=== PATIENT | female | born 1960 | race Caucasian/White ===

== ENCOUNTER 2016-10-13 14:45 | Outpatient (RCR) | payer BC ==
[2014-02-19 08:54] VITALS: BP 151/76
[~2016-10-13 14:45] MED LIST: MAXZIDE 25 MG-31 TAB PO; NORCO 325 MG-7.1 TAB PO; NORVASC2.5 MG PO; SYNTHROID0.1 MG PO
== END 2016-11-12 11:10 | disposition home or self-care (01) ==
LOC: PT 14:45
DX: M25.562 Pain in left knee (principal)

== ENCOUNTER → 2016-12-24 | Outpatient (CLI) | payer BC ==
[2014-02-19 08:54] VITALS: BP 151/76
== END ==
LOC: MAMMO 15:50
DX: Z12.31 Encounter for screening mammogram for malignant neoplasm of breast (principal)
CPT/HCPCS: G0202

== ENCOUNTER → 2016-12-30 | Outpatient (CLI) | payer BC ==
[2014-02-19 08:54] VITALS: BP 151/76
== END ==
LOC: LAB 08:30
DX: Z00.00 Encounter for general adult medical examination without abnormal findings (principal); Z13.220 Encounter for screening for lipoid disorders; R12 Heartburn

== ENCOUNTER → 2017-01-27 | Day surgery (SDC) | payer BC ==
[2014-02-19 08:54] VITALS: BP 151/76
== END ==
LOC: MSO 10:53
DX: K21.9 Gastro-esophageal reflux disease without esophagitis (principal); R13.10 Dysphagia, unspecified; K22.8 Other specified diseases of esophagus; K44.9 Diaphragmatic hernia without obstruction or gangrene; K21.0 Gastro-esophageal reflux disease with esophagitis; K22.2 Esophageal obstruction
CPT/HCPCS: 00740; A4649; J7120

== ENCOUNTER → 2017-04-07 | Outpatient (CLI) | payer BC ==
[2014-02-19 08:54] VITALS: BP 151/76
== END ==
LOC: RAD 11:02
DX: S62.662A Nondisplaced fracture of distal phalanx of right middle finger, initial encounter for closed fracture (principal); X58.XXXA Exposure to other specified factors, initial encounter

== ENCOUNTER → 2017-04-08 | Outpatient (CLI) | payer BC ==
[2014-02-19 08:54] VITALS: BP 151/76
== END ==
LOC: PT 15:26
DX: M25.562 Pain in left knee (principal); M25.462 Effusion, left knee

== ENCOUNTER 2017-05-29 15:00 | Outpatient (RCR) | payer BC ==
[2014-02-19 08:54] VITALS: BP 151/76
[2017-06-22] MEDS ORDERED: ESTRACE 1MG1 MG/TAB PO (08:39)
[2017-06-22] MEDS ORDERED: CALCIUM 600MG+D1 TAB PO (08:40)
[2017-06-22] MEDS ORDERED: ASPIR LOW81 MG PO (08:40)
[2017-06-22] MEDS ORDERED: OMEPRAZOLE40 MG PO (08:41)
[2017-06-22] MEDS ORDERED: MOBIC15 M1 PO (08:41)
== END 2017-05-29 15:30 | disposition home or self-care (01) ==
LOC: PT 15:00
DX: Z47.89 Encounter for other orthopedic aftercare (principal)

== ENCOUNTER → 2017-06-22 | Outpatient (CLI) | payer BC ==
[~2017-06-22] VITALS: Ht 157.5 cm; Wt 74.1 kg
[~2017-06-22] MED LIST changes: +ASPIR LOW81 MG PO; +CALCIUM 600MG+D1 TAB PO; +ESTRACE 1MG1 MG/TAB PO; +MOBIC15 M1 PO; +OMEPRAZOLE40 MG PO
[2017-06-22 08:29] LABS: EOS # 0.1 (0.04-0.40); EOS % 1.9 % (1.0-5.0); HEMATOCRIT 37.5 % (37.0-47.0); HEMOGLOBIN 12.7 g/dL (12.5-16.0); LYMPH# 2.2 (1.50-4.00); MEAN CELL VOLUME 86 fl (78-100); MEAN CORPUSCULAR HEMOGLOBIN 29 pg (27-31); MEAN CORPUSCULAR HGB CONC 34 g/dL (33-37); MEAN PLATELET VOLUME 9.3 fl (7.4-10.4); MONO # 0.5 (0.20-0.80); PLATELET COUNT 299 K/mm3 (130-400); RED BLOOD COUNT 4.34 M/mm3 (4.10-5.30); RED CELL DISTRIBUTION WIDTH 13.4 % (11.5-14.5); WHITE BLOOD COUNT 5.8 K/mm3 (4.8-10.8)
[2017-06-22 08:36] LABS: ALBUMIN 3.7 g/dL (3.5-5.0); BUN/CREATININE RATIO 21.7 (6.0-26.0); CALCIUM 9.1 mg/dL (8.4-10.2); POTASSIUM 3.9 mmol/L (3.6-5.0); TOTAL BILIRUBIN 0.7 mg/dL (0.2-1.3); TOTAL PROTEIN 7.3 g/dL (6.3-8.2)
[2017-06-22 08:44] LABS: PH-URINE 8.5 (5.0 - 8.0); URINE APPEARANCE CLEAR; URINE BILIRUBIN NEGATIVE (NEGATIVE); URINE BLOOD NEGATIVE (NEGATIVE); URINE COLOR YELLOW; URINE GLUCOSE NEGATIVE (NEGATIVE); URINE KETONE NEGATIVE (NEGATIVE); URINE LEUKOCYTE ESTERASE NEGATIVE (NEGATIVE); URINE NITRATE NEGATIVE (NEGATIVE); URINE PROTEIN(semi-quant) NEGATIVE (NEGATIVE); URINE UROBILINOGEN NORMAL (NORMAL); URINE WBC 0-1 /hpf (0-3)
[2017-06-22 08:50] VITALS: BP 164/86
== END ==
LOC: AMSURD 08:10
PROVIDERS: Nurse Practitioner Family
DX: Z01.818 Encounter for other preprocedural examination (principal); M25.562 Pain in left knee

== ENCOUNTER → 2017-08-06 | Outpatient (CLI) | payer BC ==
[2017-06-22 08:50] VITALS: BP 164/86
[2017-08-06 18:28] LABS: HEMOGLOBIN 11.2 g/dL (12.5-16.0); MEAN CELL VOLUME 89 fl (78-100); MEAN CORPUSCULAR HEMOGLOBIN 29 pg (27-31); MEAN CORPUSCULAR HGB CONC 33 g/dL (33-37); MEAN PLATELET VOLUME 8.8 fl (7.4-10.4); PLATELET COUNT 457 K/mm3 (130-400); RED BLOOD COUNT 3.84 M/mm3 (4.10-5.30); RED CELL DISTRIBUTION WIDTH 13.9 % (11.5-14.5)
[2017-08-06 18:40] LABS: WHITE BLOOD COUNT 22.7 K/mm3 (4.8-10.8)
[2017-08-06 18:42] LABS: LYMPHOCYTE 3 % (20-51); MONOCYTE 3 % (3-10); NEUTROPHILS 94 % (42-75)
[2017-08-06 19:24] LABS: ERYTHROCYTE SEDIMENTATION RATE 25 mm/hr (0-30)
[2017-08-06 20:24] LABS: PH-URINE 5.5 (5.0 - 8.0); URINE APPEARANCE CLEAR; URINE BILIRUBIN NEGATIVE (NEGATIVE); URINE COLOR YELLOW; URINE GLUCOSE NEGATIVE (NEGATIVE); URINE KETONE NEGATIVE (NEGATIVE); URINE PROTEIN(semi-quant) TRACE mg/dL (NEGATIVE)
[2017-08-06 20:25] LABS: URINE BLOOD TRACE (NEGATIVE); URINE LEUKOCYTE ESTERASE NEGATIVE (NEGATIVE); URINE NITRATE NEGATIVE (NEGATIVE); URINE UROBILINOGEN NORMAL (NORMAL); URINE WBC 0-1 /hpf (0-3)
== END ==
LOC: LAB 18:04
PROVIDERS: Nurse Practitioner Family
DX: R50.9 Fever, unspecified (principal); Z96.652 Presence of left artificial knee joint

== ENCOUNTER 2017-08-11 08:00 | Outpatient (RCR) | payer BC ==
[2017-06-22 08:50] VITALS: BP 164/86
== END 2017-08-11 08:30 | disposition home or self-care (01) ==
LOC: PT 08:00
DX: Z47.89 Encounter for other orthopedic aftercare (principal)

== ENCOUNTER → 2017-08-12 | Outpatient (CLI) | payer BC ==
[2017-06-22 08:50] VITALS: BP 164/86
[2017-08-12 16:39] LABS: EOS # 0.1 (0.04-0.40); EOS % 1.5 % (1.0-5.0); HEMATOCRIT 34.2 % (37.0-47.0); HEMOGLOBIN 10.9 g/dL (12.5-16.0); LYMPH# 1.9 (1.50-4.00); MEAN CELL VOLUME 90 fl (78-100); MEAN CORPUSCULAR HEMOGLOBIN 29 pg (27-31); MEAN CORPUSCULAR HGB CONC 32 g/dL (33-37); MEAN PLATELET VOLUME 8.5 fl (7.4-10.4); MONO # 0.9 (0.20-0.80); NEU # 5.5 (1.40-6.50); RED BLOOD COUNT 3.82 M/mm3 (4.10-5.30); RED CELL DISTRIBUTION WIDTH 13.9 % (11.5-14.5); WHITE BLOOD COUNT 8.5 K/mm3 (4.8-10.8)
[2017-08-12 16:44] LABS: PLATELET COUNT 561 K/mm3 (130-400)
== END ==
LOC: LAB 16:26
PROVIDERS: Nurse Practitioner Family
DX: D72.829 Elevated white blood cell count, unspecified (principal)

== ENCOUNTER → 2017-09-02 | Outpatient (CLI) | payer BC ==
[2017-06-22 08:50] VITALS: BP 164/86
[2017-09-02 15:38] LABS: EOS # 0.1 (0.04-0.40); EOS % 0.9 % (1.0-5.0); HEMATOCRIT 35.2 % (37.0-47.0); HEMOGLOBIN 10.9 g/dL (12.5-16.0); LYMPH# 1.8 (1.50-4.00); MEAN CELL VOLUME 88 fl (78-100); MEAN CORPUSCULAR HEMOGLOBIN 27 pg (27-31); MEAN CORPUSCULAR HGB CONC 31 g/dL (33-37); MEAN PLATELET VOLUME 8.6 fl (7.4-10.4); MONO # 0.6 (0.20-0.80); NEU # 4.1 (1.40-6.50); RED BLOOD COUNT 3.99 M/mm3 (4.10-5.30); RED CELL DISTRIBUTION WIDTH 13.8 % (11.5-14.5); WHITE BLOOD COUNT 6.6 K/mm3 (4.8-10.8)
[2017-09-02 15:45] LABS: PLATELET COUNT 660 K/mm3 (130-400)
[2017-09-02 21:08] LABS: ERYTHROCYTE SEDIMENTATION RATE 72 mm/hr (0-30)
== END ==
LOC: LAB 15:00
PROVIDERS: Orthopaedic Surgery Sports Medicine
DX: Z47.1 Aftercare following joint replacement surgery (principal); M25.862 Other specified joint disorders, left knee

== ENCOUNTER → 2017-09-07 | Outpatient (CLI) | payer BC ==
[2017-06-22 08:50] VITALS: BP 164/86
[2017-09-07 10:27] LABS: HEMATOCRIT 37.8 % (37.0-47.0); HEMOGLOBIN 11.9 g/dL (12.5-16.0); MEAN CELL VOLUME 88 fl (78-100); MEAN CORPUSCULAR HEMOGLOBIN 28 pg (27-31); MEAN CORPUSCULAR HGB CONC 32 g/dL (33-37); MEAN PLATELET VOLUME 8.3 fl (7.4-10.4); RED BLOOD COUNT 4.32 M/mm3 (4.10-5.30); RED CELL DISTRIBUTION WIDTH 14.5 % (11.5-14.5); WHITE BLOOD COUNT 5.1 K/mm3 (4.8-10.8)
[2017-09-07 11:19] LABS: PLATELET COUNT 529 K/mm3 (130-400)
[2017-09-07 11:21] LABS: BAND 1 % (0-10); LYMPHOCYTE 20 % (20-51); MONOCYTE 19 % (3-10); NEUTROPHILS 60 % (42-75)
[2017-09-07 11:35] LABS: ERYTHROCYTE SEDIMENTATION RATE 50 mm/hr (0-30)
== END ==
LOC: LAB 10:17
PROVIDERS: Nurse Practitioner Family
DX: R05 Cough (principal); R50.9 Fever, unspecified; L02.416 Cutaneous abscess of left lower limb; Z91.041 Radiographic dye allergy status

== ENCOUNTER → 2017-09-14 | Outpatient (CLI) | payer BC ==
[2017-06-22 08:50] VITALS: BP 164/86
[2017-09-14 09:50] LABS: EOS # 0.1 (0.04-0.40); EOS % 0.8 % (1.0-5.0); HEMATOCRIT 35.4 % (37.0-47.0); HEMOGLOBIN 11.2 g/dL (12.5-16.0); LYMPH# 1.7 (1.50-4.00); MEAN CELL VOLUME 87 fl (78-100); MEAN CORPUSCULAR HEMOGLOBIN 28 pg (27-31); MEAN CORPUSCULAR HGB CONC 32 g/dL (33-37); MEAN PLATELET VOLUME 9.7 fl (7.4-10.4); MONO # 0.5 (0.20-0.80); NEU # 4.3 (1.40-6.50); PLATELET COUNT 379 K/mm3 (130-400); RED BLOOD COUNT 4.08 M/mm3 (4.10-5.30); RED CELL DISTRIBUTION WIDTH 14.1 % (11.5-14.5); WHITE BLOOD COUNT 6.6 K/mm3 (4.8-10.8)
== END ==
LOC: LAB 09:25
PROVIDERS: Nurse Practitioner Family
DX: R70.0 Elevated erythrocyte sedimentation rate (principal); L02.416 Cutaneous abscess of left lower limb

== ENCOUNTER → 2017-09-22 | Outpatient (CLI) | payer BC ==
[2017-06-22 08:50] VITALS: BP 164/86
== END ==
LOC: LAB 14:42
DX: T84.54XA Infection and inflammatory reaction due to internal left knee prosthesis, initial encounter (principal)

== ENCOUNTER → 2017-09-28 | Outpatient (CLI) | payer BC ==
[2017-06-22 08:50] VITALS: BP 164/86
== END ==
LOC: LAB 14:48
DX: L02.416 Cutaneous abscess of left lower limb (principal); L92.9 Granulomatous disorder of the skin and subcutaneous tissue, unspecified; Z91.041 Radiographic dye allergy status

== ENCOUNTER 2017-10-08 15:30 | Outpatient (RCR) | payer BC ==
[2017-06-22 08:50] VITALS: BP 164/86
== END 2017-11-09 | disposition home or self-care (01) ==
LOC: PT
DX: Z47.89 Encounter for other orthopedic aftercare (principal)

== ENCOUNTER 2017-11-16 15:30 | Outpatient (RCR) | payer BC ==
[2017-06-22 08:50] VITALS: BP 164/86
== END 2017-11-16 16:30 | disposition home or self-care (01) ==
LOC: PT 15:30
DX: Z47.89 Encounter for other orthopedic aftercare (principal)

== ENCOUNTER → 2017-11-27 | Outpatient (CLI) | payer BC ==
[2017-06-22 08:50] VITALS: BP 164/86
[2017-11-27 13:17] LABS: EOS % 0.5 % (1.0-5.0); HEMATOCRIT 33.2 % (37.0-47.0); HEMOGLOBIN 10.7 g/dL (12.5-16.0); LYMPH# 2.5 (1.50-4.00); MEAN CELL VOLUME 85 fl (78-100); MEAN CORPUSCULAR HEMOGLOBIN 27 pg (27-31); MEAN CORPUSCULAR HGB CONC 32 g/dL (33-37); MONO # 0.7 (0.20-0.80); NEU # 5.5 (1.40-6.50); PLATELET COUNT 438 K/mm3 (130-400); RED BLOOD COUNT 3.93 M/mm3 (4.10-5.30); RED CELL DISTRIBUTION WIDTH 14.8 % (11.5-14.5); WHITE BLOOD COUNT 8.7 K/mm3 (4.8-10.8)
[2017-11-27 14:30] LABS: ERYTHROCYTE SEDIMENTATION RATE 37 mm/hr (0-30)
== END ==
LOC: LAB 12:56
PROVIDERS: Orthopaedic Surgery Sports Medicine
DX: Z47.89 Encounter for other orthopedic aftercare (principal)

== ENCOUNTER 2017-12-07 22:02 | Outpatient (RCR) | payer BC ==
[~2017-12-07] VITALS: Ht 157.5 cm; Wt 63.6 kg
[~2017-12-07 22:02] MED LIST changes: -SYNTHROID0.1 MG PO; +SYNTHROID137 MCG PO
[2017-12-07 22:16] VITALS: BP 118/66
[2017-12-07] MEDS ORDERED: ZESTORETIC 25 M1 TAB PO (22:16)
[2017-12-07 22:50] VITALS: BP 116/65
[2017-12-08 06:10] VITALS: BP 108/64
[2017-12-08 06:50] VITALS: BP 102/62
[2017-12-08 14:11] VITALS: BP 101/56
[2017-12-08 14:42] VITALS: BP 104/78
[2017-12-08 22:01] VITALS: BP 123/62
[2017-12-08 22:33] VITALS: BP 105/60
[2017-12-09 06:00] VITALS: BP 94/38
[2017-12-09 06:35] VITALS: BP 107/59
[2017-12-09 14:04] VITALS: BP 137/94
[2017-12-09 14:43] VITALS: BP 106/58
[2017-12-09 22:00] VITALS: BP 115/53
[2017-12-09 22:50] VITALS: BP 112/63
[2017-12-10 05:58] VITALS: BP 107/52
[2017-12-10 06:43] VITALS: BP 104/53
[2017-12-10 14:04] VITALS: BP 108/56
[2017-12-10 14:43] VITALS: BP 105/59
[2017-12-10 21:54] VITALS: BP 126/80
[2017-12-10 22:40] VITALS: BP 109/66
--- NOTE | 2017-12-10 22:52 | NUR ---
Unable to flush red lumen or obtain blood return, prior to infusion. Notified RN and used Purple lumen which flushed easily and had good blood return. Concepcion RN assessed red lumen after infusion completed. Changed caps. Unable to obtain blood return or flush.
--- NOTE | 2017-12-10 23:00 | NUR ---
Discussed w/ pt that cath diana may be needed to help open the red lumen. Will reevaluate in the am. Pt asked to cough and reposition right arm without any change in ability to flush red lumen. Pt agreeable to plan. Purple lumen was sluggish with NS flush and flushed with Heplock 1 ml prior to pt's leaving.
[2017-12-11 06:12] VITALS: BP 117/57
[2017-12-11 06:50] VITALS: BP 116/59
[2017-12-11 14:25] VITALS: BP 103/58
--- NOTE | 2017-12-11 15:00 | NUR ---
PICC DRESSING NOTED TO HAVE MOD AMOUNT DRIED SEROUS DRAINAGE TO DISTAL END. REMOVE DRESSING AND STAT LOCK. AREA UNDER STAT LOCK RED, IRRITATED AND MOIST WITH SEROUS FLUID. PT REPORTS THAT SKIN GETS IRRITATED EASILY FROM ADHESIVES. CLEANSE AREA WITH ALCOHOL AND CHLORAPREP BY STERILE PROCEDURE, APPLY SKIN PREP AND REPLACE DRESSING. NO OTHER S/S OF INFECTION NOTED.
[2017-12-11 15:07] VITALS: BP 105/60
[2017-12-11 22:15] VITALS: BP 116/64
[2017-12-11 22:21] VITALS: BP 114/57
[2017-12-12 05:56] VITALS: BP 106/59
[2017-12-12 06:31] VITALS: BP 108/64
[2017-12-12 14:04] VITALS: BP 101/56
[2017-12-12 14:35] VITALS: BP 102/57
[2017-12-12 21:55] VITALS: BP 111/61
[2017-12-12 22:27] VITALS: BP 106/62
[2017-12-13 05:55] VITALS: BP 98/56
[2017-12-13 06:25] VITALS: BP 106/61
[2017-12-13 14:00] VITALS: BP 110/61
[2017-12-13 22:01] VITALS: BP 102/58
[2017-12-13 22:40] VITALS: BP 98/51
[2017-12-14 06:01] VITALS: BP 103/50
[2017-12-14 06:32] VITALS: BP 87/46
[2017-12-14 14:02] VITALS: BP 108/64
[2017-12-14 14:41] VITALS: BP 107/58
[2017-12-14 22:05] VITALS: BP 117/59
[2017-12-14 22:38] VITALS: BP 115/58
[2017-12-15 06:00] VITALS: BP 100/48
[2017-12-15 06:32] VITALS: BP 106/55
[2017-12-15 14:10] VITALS: BP 117/48
[2017-12-15 14:50] VITALS: BP 99/55
[2017-12-15 22:04] VITALS: BP 122/61
[2017-12-15 22:35] VITALS: BP 106/58
[2017-12-16 05:58] VITALS: BP 93/54
[2017-12-16 06:33] VITALS: BP 111/67
[2017-12-16 14:00] VITALS: BP 107/57
[2017-12-16 14:36] VITALS: BP 107/47
[2017-12-16 21:58] VITALS: BP 107/60
[2017-12-16 22:32] VITALS: BP 114/66
[2017-12-17 05:52] VITALS: BP 106/60
[2017-12-17 06:27] VITALS: BP 119/68
[2017-12-17 14:41] VITALS: BP 111/55
[2017-12-17 21:56] VITALS: BP 113/60
[2017-12-17 22:30] VITALS: BP 107/54
[2017-12-18 06:01] VITALS: BP 107/60
[2017-12-18 06:32] VITALS: BP 105/58
[2017-12-18 14:08] VITALS: BP 110/67
--- NOTE | 2017-12-18 14:45 | NUR ---
PICC SCOTTIE insertion site without redness or edema or drainage. Skin irritation noted under entire dressing - appears to be trying to blister a little. Pt denies itching. Pt reports she is very sensitive to adhesive. Extra layer of skin prep applied prior to application of tegaderm. Pt will monitor and report changes to staff. New philip wrap applied over PICC. Pt tolerated well. Pt went to Dr. Clay today and had sutures removed. Steri stips intact to right knee - no drainage noted.
[2017-12-18 14:52] VITALS: BP 112/67
[2017-12-18 22:19] VITALS: BP 114/63
[2017-12-18 23:00] VITALS: BP 125/71
[2017-12-19 06:44] VITALS: BP 83/57
[2017-12-19 08:20] VITALS: BP 111/61
[2017-12-19 14:10] VITALS: BP 136/67
[2017-12-19 14:40] VITALS: BP 117/69
[2017-12-19 21:56] VITALS: BP 108/68
[2017-12-19 22:25] VITALS: BP 124/72
[2017-12-20 06:00] VITALS: BP 105/48
[2017-12-20 06:32] VITALS: BP 106/54
[2017-12-20 14:04] VITALS: BP 99/51
[2017-12-20 14:29] VITALS: BP 118/66
[2017-12-20 22:00] VITALS: BP 119/64
[2017-12-20 22:45] VITALS: BP 112/62
[2017-12-21 06:00] VITALS: BP 107/67
[2017-12-21 06:34] VITALS: BP 119/67
[2017-12-21 14:08] VITALS: BP 115/47
[2017-12-21 14:38] VITALS: BP 102/37
[2017-12-21 22:37] VITALS: BP 104/41
[2017-12-21 23:20] VITALS: BP 110/59
[2017-12-22 05:54] VITALS: BP 108/58
[2017-12-22 06:26] VITALS: BP 110/63
[2017-12-22 14:46] VITALS: BP 105/58
[2017-12-22 14:49] VITALS: BP 109/68
[2017-12-22 22:10] VITALS: BP 108/59
[2017-12-22 23:15] VITALS: BP 111/56
[2017-12-23 05:50] VITALS: BP 113/57
[2017-12-23 06:29] VITALS: BP 103/61
[2017-12-23 14:17] VITALS: BP 107/62
[2017-12-23 14:37] VITALS: BP 105/61
[2017-12-23 22:04] VITALS: BP 105/61
[2017-12-23 22:40] VITALS: BP 108/52
[2017-12-24 05:55] VITALS: BP 99/58
--- NOTE | 2017-12-24 06:09 | NUR ---
LABS DRAWN OFF PICC LINE BEFORE MEDICATION STARTED.
[2017-12-24 06:29] VITALS: BP 108/58
[2017-12-24 13:50] VITALS: BP 112/50
[2017-12-24 14:39] VITALS: BP 106/58
[2017-12-24 22:31] VITALS: BP 126/86
[2017-12-24 23:00] VITALS: BP 129/61
[2017-12-25 05:55] VITALS: BP 121/51
[2017-12-25 06:29] VITALS: BP 121/60
[2017-12-25 13:57] VITALS: BP 108/61
[2017-12-25 14:36] VITALS: BP 111/62
[2017-12-25 21:50] VITALS: BP 97/69
[2017-12-25 22:30] VITALS: BP 117/66
[2017-12-26 05:51] VITALS: BP 107/51
[2017-12-26 06:34] VITALS: BP 111/61
[2017-12-26 14:01] VITALS: BP 112/54
[2017-12-26 14:37] VITALS: BP 118/78
[2017-12-26 21:55] VITALS: BP 114/61
[2017-12-26 22:40] VITALS: BP 106/55
[2017-12-27 06:00] VITALS: BP 110/63
[2017-12-27 06:32] VITALS: BP 99/65
[2017-12-27 13:52] VITALS: BP 109/60
[2017-12-27 14:41] VITALS: BP 105/50
[2017-12-27 21:57] VITALS: BP 115/67
[2017-12-27 22:25] VITALS: BP 121/64
[2017-12-28 05:52] VITALS: BP 116/52
[2017-12-28 06:30] VITALS: BP 109/57
[2017-12-28 14:10] VITALS: BP 104/59
[2017-12-28 14:38] VITALS: BP 106/59
[2017-12-28 21:50] VITALS: BP 119/62
[2017-12-28 22:25] VITALS: BP 124/64
[2017-12-29 05:55] VITALS: BP 117/59
[2017-12-29 06:25] VITALS: BP 107/63
[2017-12-29 16:02] VITALS: BP 110/61; BP 121/55
[2017-12-29 22:00] VITALS: BP 127/69
[2017-12-29 22:31] VITALS: BP 124/75
[2017-12-30 05:56] VITALS: BP 109/52
[2017-12-30 06:24] VITALS: BP 122/71
[2017-12-30 14:06] VITALS: BP 110/67
[2017-12-30 22:05] VITALS: BP 111/61
[2017-12-30 23:01] VITALS: BP 106/63
[2017-12-31 06:33] VITALS: BP 122/64
[2017-12-31 06:48] VITALS: BP 106/62
[2017-12-31 13:56] VITALS: BP 112/62
[2017-12-31 14:32] VITALS: BP 131/68
[2017-12-31 21:58] VITALS: BP 132/76
[2017-12-31 22:45] VITALS: BP 120/73
[2018-01-01 05:50] VITALS: BP 110/66
[2018-01-01 06:32] VITALS: BP 105/63
[2018-01-01 13:50] VITALS: BP 109/66
[2018-01-01 14:33] VITALS: BP 112/65
[2018-01-01 21:50] VITALS: BP 123/60
[2018-01-01 22:25] VITALS: BP 106/59
[2018-01-02 05:55] VITALS: BP 106/41
[2018-01-02 06:32] VITALS: BP 104/56
[2018-01-02 13:49] VITALS: BP 119/60
[2018-01-02 21:59] VITALS: BP 106/58
[2018-01-02 22:27] VITALS: BP 132/60
[2018-01-03 05:56] VITALS: BP 106/58
[2018-01-03 06:30] VITALS: BP 113/68
[2018-01-03 14:00] VITALS: BP 123/61
[2018-01-03 14:45] VITALS: BP 123/69
[2018-01-03 21:55] VITALS: BP 124/69
[2018-01-03 22:27] VITALS: BP 106/58
[2018-01-04 05:53] VITALS: BP 108/62
[2018-01-04 06:25] VITALS: BP 108/60
[2018-01-04 14:00] VITALS: BP 115/61
[2018-01-04 14:35] VITALS: BP 95/71
[2018-01-04 22:00] VITALS: BP 113/66
[2018-01-04 22:30] VITALS: BP 113/68
[2018-01-05 05:53] VITALS: BP 113/62
[2018-01-05 06:25] VITALS: BP 110/58
[2018-01-05 13:50] VITALS: BP 121/64
[2018-01-05 14:30] VITALS: BP 101/65
[2018-01-05 21:53] VITALS: BP 115/63
[2018-01-05 22:33] VITALS: BP 107/59
[2018-01-06 05:52] VITALS: BP 109/61
[2018-01-06 06:24] VITALS: BP 101/63
[2018-01-06 15:14] VITALS: BP 116/53; BP 122/73
[2018-01-06 21:50] VITALS: BP 115/66
[2018-01-06 22:25] VITALS: BP 118/65
[2018-01-07 05:50] VITALS: BP 104/59
[2018-01-07 06:35] VITALS: BP 116/66
[2018-01-07 14:05] VITALS: BP 112/64
[2018-01-07 14:35] VITALS: BP 108/65
[2018-01-07 21:51] VITALS: BP 125/70
[2018-01-07 22:33] VITALS: BP 126/68
[2018-01-08 05:47] VITALS: BP 113/58
[2018-01-08 06:23] VITALS: BP 114/61
[2018-01-08 13:56] VITALS: BP 111/64
[2018-01-08 14:35] VITALS: BP 116/55
[2018-01-08 21:50] VITALS: BP 102/60
[2018-01-08 22:23] VITALS: BP 104/57
[2018-01-09 05:54] VITALS: BP 96/56
[2018-01-09 06:32] VITALS: BP 105/62
[2018-01-09 14:07] VITALS: BP 115/55
[2018-01-09 14:50] VITALS: BP 106/60
[2018-01-09 21:50] VITALS: BP 110/67
[2018-01-09 22:28] VITALS: BP 123/52
[2018-01-10 05:47] VITALS: BP 115/54
[2018-01-10 06:34] VITALS: BP 108/62
[2018-01-10 14:41] VITALS: BP 122/59
[2018-01-10 14:45] VITALS: BP 115/65
[2018-01-10 21:53] VITALS: BP 117/68
[2018-01-10 22:24] VITALS: BP 110/65
[2018-01-11 05:49] VITALS: BP 100/63
[2018-01-11 06:21] VITALS: BP 110/64
[2018-01-11 14:00] VITALS: BP 119/46
[2018-01-11 14:45] VITALS: BP 120/66
[2018-01-11 21:50] VITALS: BP 125/70
[2018-01-11 22:25] VITALS: BP 109/69
[2018-01-12 18:35] VITALS: BP 117/69
[2018-01-13 15:13] VITALS: BP 113/78
[2018-01-14 06:05] VITALS: BP 118/59
[2018-01-15 13:56] VITALS: BP 134/76
[2018-01-16 14:05] VITALS: BP 109/64
[2018-01-17 14:15] VITALS: BP 114/47
[2018-01-18 06:02] VITALS: BP 125/47
[2018-01-19 14:15] VITALS: BP 133/64
[2018-01-20 14:30] VITALS: BP 124/76
[2018-01-21 05:56] VITALS: BP 104/61
[2018-01-22 13:52] VITALS: BP 141/67
== END 2018-01-22 16:30 | disposition home or self-care (01) ==
LOC: AMSURD 22:02
DX: T84.54XA Infection and inflammatory reaction due to internal left knee prosthesis, initial encounter (principal); B99.9 Unspecified infectious disease; Z45.2 Encounter for adjustment and management of vascular access device
CPT/HCPCS: J0690; J1644

== ENCOUNTER → 2017-12-10 | Outpatient (CLI) | payer BC ==
[~2017-12-10] MED LIST changes: +ZESTORETIC 25 M1 TAB PO
[2017-12-10 05:58] VITALS: BP 107/52
[2017-12-10 06:41] LABS: EOS # 0.2 (0.04-0.40); EOS % 2.4 % (1.0-5.0); HEMATOCRIT 30.6 % (37.0-47.0); HEMOGLOBIN 9.7 g/dL (12.5-16.0); LYMPH# 2.7 (1.50-4.00); MEAN CELL VOLUME 85 fl (78-100); MEAN CORPUSCULAR HEMOGLOBIN 27 pg (27-31); MEAN CORPUSCULAR HGB CONC 32 g/dL (33-37); MONO # 0.6 (0.20-0.80); NEU # 3.2 (1.40-6.50); PLATELET COUNT 374 K/mm3 (130-400); RED BLOOD COUNT 3.59 M/mm3 (4.10-5.30); WHITE BLOOD COUNT 6.7 K/mm3 (4.8-10.8)
[2017-12-10 06:45] LABS: ALBUMIN 3.2 g/dL (3.5-5.0); BUN/CREATININE RATIO 29.9 (6.0-26.0); CALCIUM 8.4 mg/dL (8.4-10.2); POTASSIUM 3.5 mmol/L (3.6-5.0); TOTAL BILIRUBIN 0.1 mg/dL (0.2-1.3); TOTAL PROTEIN 6.6 g/dL (6.3-8.2)
[2017-12-10 07:32] LABS: ERYTHROCYTE SEDIMENTATION RATE 20 mm/hr (0-30)
== END ==
LOC: LAB 06:15
PROVIDERS: Internal Medicine Infectious Disease
DX: T84.50XA Infection and inflammatory reaction due to unspecified internal joint prosthesis, initial encounter (principal)

== ENCOUNTER → 2017-12-17 | Outpatient (CLI) | payer BC ==
[2017-12-16 22:32] VITALS: BP 114/66
[2017-12-17 06:27] LABS: EOS # 0.2 (0.04-0.40); EOS % 2.8 % (1.0-5.0); HEMATOCRIT 31.7 % (37.0-47.0); LYMPH# 2.5 (1.50-4.00); MEAN CELL VOLUME 86 fl (78-100); MEAN CORPUSCULAR HEMOGLOBIN 27 pg (27-31); MEAN CORPUSCULAR HGB CONC 32 g/dL (33-37); MEAN PLATELET VOLUME 9.4 fl (7.4-10.4); MONO # 0.5 (0.20-0.80); NEU # 2.9 (1.40-6.50); PLATELET COUNT 354 K/mm3 (130-400); RED BLOOD COUNT 3.68 M/mm3 (4.10-5.30); RED CELL DISTRIBUTION WIDTH 15.7 % (11.5-14.5); WHITE BLOOD COUNT 6.1 K/mm3 (4.8-10.8)
[2017-12-17 06:36] LABS: ALBUMIN 3.4 g/dL (3.5-5.0); BUN/CREATININE RATIO 31.8 (6.0-26.0); CALCIUM 8.7 mg/dL (8.4-10.2); POTASSIUM 3.7 mmol/L (3.6-5.0); TOTAL BILIRUBIN 0.1 mg/dL (0.2-1.3); TOTAL PROTEIN 6.7 g/dL (6.3-8.2)
[2017-12-17 07:29] LABS: ERYTHROCYTE SEDIMENTATION RATE 17 mm/hr (0-30)
== END ==
LOC: LAB 05:53
PROVIDERS: Nurse Practitioner Family
DX: T84.54XA Infection and inflammatory reaction due to internal left knee prosthesis, initial encounter (principal)

== ENCOUNTER → 2017-12-24 | Outpatient (CLI) | payer BC ==
[2017-12-24 06:29] VITALS: BP 108/58
[2017-12-24 06:58] LABS: BASO # 0.1 (0.02-0.10); EOS # 0.1 (0.04-0.40); EOS % 1.9 % (1.0-5.0); HEMATOCRIT 33.5 % (37.0-47.0); HEMOGLOBIN 10.6 g/dL (12.5-16.0); LYMPH# 2.2 (1.50-4.00); MEAN CELL VOLUME 87 fl (78-100); MEAN CORPUSCULAR HEMOGLOBIN 28 pg (27-31); MEAN CORPUSCULAR HGB CONC 32 g/dL (33-37); MEAN PLATELET VOLUME 9.8 fl (7.4-10.4); MONO # 0.6 (0.20-0.80); NEU # 3.3 (1.40-6.50); PLATELET COUNT 307 K/mm3 (130-400); RED BLOOD COUNT 3.86 M/mm3 (4.10-5.30); RED CELL DISTRIBUTION WIDTH 15.6 % (11.5-14.5); WHITE BLOOD COUNT 6.4 K/mm3 (4.8-10.8)
[2017-12-24 07:11] LABS: ALBUMIN 3.5 g/dL (3.5-5.0); ALT/SGPT 25 U/L (9-52); AST-SGOT 49 U/L (14-36); BUN/CREATININE RATIO 31.6 (6.0-26.0); CALCIUM 8.8 mg/dL (8.4-10.2); CARBON DIOXIDE 28 mmol/L (22-30); GLUCOSE 89 mg/dL (65-105); POTASSIUM 3.8 mmol/L (3.6-5.0); SODIUM 140 mmol/L (137-145); TOTAL BILIRUBIN 0.2 mg/dL (0.2-1.3)
[2017-12-24 08:09] LABS: ERYTHROCYTE SEDIMENTATION RATE 14 mm/hr (0-30)
== END ==
LOC: LAB 06:51
PROVIDERS: Orthopaedic Surgery Sports Medicine
DX: T84.54XA Infection and inflammatory reaction due to internal left knee prosthesis, initial encounter (principal); Z45.2 Encounter for adjustment and management of vascular access device

== ENCOUNTER → 2017-12-31 | Outpatient (CLI) | payer BC ==
[2017-12-30 23:01] VITALS: BP 106/63
[2017-12-31 06:49] LABS: HEMOGLOBIN 10.2 g/dL (12.5-16.0); MEAN PLATELET VOLUME 9.8 fl (7.4-10.4); RED BLOOD COUNT 3.77 M/mm3 (4.10-5.30); RED CELL DISTRIBUTION WIDTH 15.5 % (11.5-14.5); WHITE BLOOD COUNT 4.9 K/mm3 (4.8-10.8)
[2017-12-31 06:56] LABS: ALBUMIN 3.4 g/dL (3.5-5.0); BUN/CREATININE RATIO 41.4 (6.0-26.0); CALCIUM 8.3 mg/dL (8.4-10.2); POTASSIUM 3.7 mmol/L (3.6-5.0); TOTAL BILIRUBIN 0.1 mg/dL (0.2-1.3); TOTAL PROTEIN 6.8 g/dL (6.3-8.2)
== END ==
LOC: LAB 06:28
PROVIDERS: Orthopaedic Surgery Sports Medicine
DX: T84.50XA Infection and inflammatory reaction due to unspecified internal joint prosthesis, initial encounter (principal)

== ENCOUNTER → 2018-01-07 | Outpatient (CLI) | payer BC ==
[2018-01-07 05:50] VITALS: BP 104/59
[2018-01-07 06:47] LABS: ALBUMIN 3.5 g/dL (3.5-5.0); BUN/CREATININE RATIO 34.7 (6.0-26.0); CALCIUM 8.7 mg/dL (8.4-10.2); POTASSIUM 3.9 mmol/L (3.6-5.0); TOTAL BILIRUBIN 0.1 mg/dL (0.2-1.3)
[2018-01-07 06:48] LABS: EOS # 0.2 (0.04-0.40); EOS % 2.2 % (1.0-5.0); HEMATOCRIT 35.1 % (37.0-47.0); LYMPH# 1.8 (1.50-4.00); MEAN CELL VOLUME 87 fl (78-100); MEAN CORPUSCULAR HEMOGLOBIN 27 pg (27-31); MEAN CORPUSCULAR HGB CONC 31 g/dL (33-37); MEAN PLATELET VOLUME 9.7 fl (7.4-10.4); MONO # 0.6 (0.20-0.80); NEU # 4.1 (1.40-6.50); PLATELET COUNT 332 K/mm3 (130-400); RED BLOOD COUNT 4.04 M/mm3 (4.10-5.30); RED CELL DISTRIBUTION WIDTH 15.2 % (11.5-14.5); WHITE BLOOD COUNT 6.7 K/mm3 (4.8-10.8)
[2018-01-07 07:47] LABS: ERYTHROCYTE SEDIMENTATION RATE 11 mm/hr (0-30)
== END ==
LOC: LAB 06:33
PROVIDERS: Internal Medicine Infectious Disease
DX: T84.54XA Infection and inflammatory reaction due to internal left knee prosthesis, initial encounter (principal); B99.9 Unspecified infectious disease

== ENCOUNTER → 2018-01-13 | Outpatient (CLI) | payer BC ==
[2018-01-12 18:35] VITALS: BP 117/69
== END ==
LOC: RAD 08:57
DX: Z09 Encounter for follow-up examination after completed treatment for conditions other than malignant neoplasm (principal); Z96.652 Presence of left artificial knee joint

== ENCOUNTER → 2018-01-14 | Outpatient (CLI) | payer BC ==
[2018-01-13 15:13] VITALS: BP 113/78
[2018-01-14 06:16] LABS: BASO # 0.1 (0.02-0.10); EOS # 0.2 (0.04-0.40); EOS % 2.8 % (1.0-5.0); HEMATOCRIT 35.7 % (37.0-47.0); HEMOGLOBIN 11.4 g/dL (12.5-16.0); MEAN CELL VOLUME 87 fl (78-100); MEAN CORPUSCULAR HEMOGLOBIN 28 pg (27-31); MEAN CORPUSCULAR HGB CONC 32 g/dL (33-37); MEAN PLATELET VOLUME 9.7 fl (7.4-10.4); MONO # 0.6 (0.20-0.80); PLATELET COUNT 322 K/mm3 (130-400); RED CELL DISTRIBUTION WIDTH 14.8 % (11.5-14.5); WHITE BLOOD COUNT 5.8 K/mm3 (4.8-10.8)
[2018-01-14 06:38] LABS: ALBUMIN 3.7 g/dL (3.5-5.0); BUN/CREATININE RATIO 33.3 (6.0-26.0); TOTAL BILIRUBIN 0.2 mg/dL (0.2-1.3); TOTAL PROTEIN 7.3 g/dL (6.3-8.2)
[2018-01-14 06:47] LABS: POTASSIUM 4.1 mmol/L (3.6-5.0)
[2018-01-14 07:27] LABS: ERYTHROCYTE SEDIMENTATION RATE 11 mm/hr (0-30)
== END ==
LOC: LAB 05:46
PROVIDERS: Internal Medicine Infectious Disease
DX: B99.9 Unspecified infectious disease (principal)

== ENCOUNTER → 2018-01-21 | Outpatient (CLI) | payer BC ==
[2018-01-21 05:56] VITALS: BP 104/61
[2018-01-21 06:34] LABS: ALBUMIN 3.6 g/dL (3.5-5.0); BUN/CREATININE RATIO 33.3 (6.0-26.0); CALCIUM 8.4 mg/dL (8.4-10.2); TOTAL BILIRUBIN 0.3 mg/dL (0.2-1.3)
[2018-01-21 07:14] LABS: EOS # 0.1 (0.04-0.40); EOS % 2.5 % (1.0-5.0); ERYTHROCYTE SEDIMENTATION RATE 10 mm/hr (0-30); HEMOGLOBIN 11.3 g/dL (12.5-16.0); MEAN CELL VOLUME 86 fl (78-100); MEAN CORPUSCULAR HEMOGLOBIN 28 pg (27-31); MEAN CORPUSCULAR HGB CONC 32 g/dL (33-37); MEAN PLATELET VOLUME 9.6 fl (7.4-10.4); MONO # 0.6 (0.20-0.80); NEU # 2.5 (1.40-6.50); PLATELET COUNT 333 K/mm3 (130-400); RED BLOOD COUNT 4.05 M/mm3 (4.10-5.30); RED CELL DISTRIBUTION WIDTH 14.6 % (11.5-14.5); WHITE BLOOD COUNT 5.3 K/mm3 (4.8-10.8)
== END ==
LOC: LAB 05:40
PROVIDERS: Orthopaedic Surgery Sports Medicine
DX: B99.9 Unspecified infectious disease (principal)

== ENCOUNTER → 2018-02-17 | Outpatient (CLI) | payer BC ==
[2018-01-22 13:52] VITALS: BP 141/67
== END ==
LOC: MAMMO 14:16
DX: Z12.31 Encounter for screening mammogram for malignant neoplasm of breast (principal)

== ENCOUNTER → 2018-02-18 | Outpatient (CLI) | payer BC ==
[2018-01-22 13:52] VITALS: BP 141/67
[2018-02-18 13:51] LABS: EOS # 0.1 (0.04-0.40); EOS % 1.1 % (1.0-5.0); HEMATOCRIT 36.5 % (37.0-47.0); LYMPH# 1.8 (1.50-4.00); MEAN CELL VOLUME 86 fl (78-100); MEAN CORPUSCULAR HEMOGLOBIN 28 pg (27-31); MEAN CORPUSCULAR HGB CONC 33 g/dL (33-37); MEAN PLATELET VOLUME 9.2 fl (7.4-10.4); MONO # 0.6 (0.20-0.80); NEU # 4.8 (1.40-6.50); PLATELET COUNT 290 K/mm3 (130-400); RED BLOOD COUNT 4.25 M/mm3 (4.10-5.30); WHITE BLOOD COUNT 7.3 K/mm3 (4.8-10.8)
[2018-02-18 14:09] LABS: ALBUMIN 3.8 g/dL (3.5-5.0); BUN/CREATININE RATIO 25.8 (6.0-26.0); CALCIUM 8.6 mg/dL (8.4-10.2); POTASSIUM 3.6 mmol/L (3.6-5.0); TOTAL BILIRUBIN 0.2 mg/dL (0.2-1.3); TOTAL PROTEIN 7.4 g/dL (6.3-8.2)
[2018-02-18 15:21] LABS: ERYTHROCYTE SEDIMENTATION RATE 15 mm/hr (0-30)
== END ==
LOC: LAB 13:29
PROVIDERS: Internal Medicine Infectious Disease
DX: T84.50XA Infection and inflammatory reaction due to unspecified internal joint prosthesis, initial encounter (principal); B99.9 Unspecified infectious disease

== ENCOUNTER 2018-02-19 15:00 | Outpatient (RCR) | payer BC ==
[2017-06-22 08:50] VITALS: BP 164/86
== END 2018-02-22 | disposition home or self-care (01) ==
LOC: PT
DX: Z47.89 Encounter for other orthopedic aftercare (principal)

== ENCOUNTER 2018-02-23 15:00 | Outpatient (RCR) | payer BC | END 2018-02-23 16:30 | disposition home or self-care (01) | LOC: PT 15:00 | DX: Z47.89 Encounter for other orthopedic aftercare (principal) ==

== ENCOUNTER → 2018-03-16 | Day surgery (SDC) | payer BC | LOC: MSO 12:06 | DX: K22.70 Barrett's esophagus without dysplasia (principal); K21.9 Gastro-esophageal reflux disease without esophagitis; K44.9 Diaphragmatic hernia without obstruction or gangrene; K22.8 Other specified diseases of esophagus; K22.2 Esophageal obstruction; I10 Essential (primary) hypertension; Z79.82 Long term (current) use of aspirin; Z79.899 Other long term (current) drug therapy | CPT/HCPCS: 00731; A4649; J2704; J7120 ==

== ENCOUNTER → 2018-04-26 | Outpatient (CLI) | payer BC ==
[2018-04-26 16:51] LABS: ALBUMIN 3.8 g/dL (3.5-5.0); CALCIUM 8.6 mg/dL (8.4-10.2); POTASSIUM 3.7 mmol/L (3.6-5.0); TOTAL BILIRUBIN 0.4 mg/dL (0.2-1.3)
[2018-04-26 18:24] LABS: EOS # 0.1 (0.04-0.40); EOS % 1.1 % (1.0-5.0); HEMATOCRIT 34.8 % (37.0-47.0); HEMOGLOBIN 11.4 g/dL (12.5-16.0); LYMPH# 2.2 (1.50-4.00); MEAN CELL VOLUME 86 fl (78-100); MEAN CORPUSCULAR HEMOGLOBIN 28 pg (27-31); MEAN CORPUSCULAR HGB CONC 33 g/dL (33-37); MONO # 0.7 (0.20-0.80); NEU # 4.7 (1.40-6.50); PLATELET COUNT 309 K/mm3 (130-400); RED BLOOD COUNT 4.07 M/mm3 (4.10-5.30); RED CELL DISTRIBUTION WIDTH 13.5 % (11.5-14.5); WHITE BLOOD COUNT 7.6 K/mm3 (4.8-10.8)
[2018-04-26 19:34] LABS: ERYTHROCYTE SEDIMENTATION RATE 20 mm/hr (0-30)
== END ==
LOC: LAB 16:09
PROVIDERS: Family Medicine
DX: T84.54XA Infection and inflammatory reaction due to internal left knee prosthesis, initial encounter (principal); A49.01 Methicillin susceptible Staphylococcus aureus infection, unspecified site

== ENCOUNTER → 2018-05-21 | Outpatient (CLI) | payer BC ==
[2018-05-21 15:59] LABS: MEAN PLATELET VOLUME 8.8 fl (7.4-10.4); RED BLOOD COUNT 3.91 M/mm3 (4.10-5.30); RED CELL DISTRIBUTION WIDTH 13.5 % (11.5-14.5); WHITE BLOOD COUNT 8.2 K/mm3 (4.8-10.8)
== END ==
LOC: LAB 15:44
PROVIDERS: Orthopaedic Surgery Sports Medicine
DX: Z47.1 Aftercare following joint replacement surgery (principal); M25.562 Pain in left knee; Z96.652 Presence of left artificial knee joint

== ENCOUNTER 2018-05-26 13:45 | Outpatient (RCR) | payer BC | END 2018-05-27 | disposition home or self-care (01) | LOC: PT | DX: Z47.89 Encounter for other orthopedic aftercare (principal); Z96.652 Presence of left artificial knee joint ==

== ENCOUNTER → 2018-06-15 | Outpatient (CLI) | payer BC ==
[2018-06-15 15:01] LABS: EOS # 0.1 (0.04-0.40); EOS % 0.6 % (1.0-5.0); HEMATOCRIT 34.6 % (37.0-47.0); HEMOGLOBIN 11.2 g/dL (12.5-16.0); LYMPH# 1.6 (1.50-4.00); MEAN CELL VOLUME 86 fl (78-100); MEAN CORPUSCULAR HEMOGLOBIN 28 pg (27-31); MEAN CORPUSCULAR HGB CONC 32 g/dL (33-37); MEAN PLATELET VOLUME 9.5 fl (7.4-10.4); MONO # 0.6 (0.20-0.80); PLATELET COUNT 441 K/mm3 (130-400); RED BLOOD COUNT 4.04 M/mm3 (4.10-5.30); RED CELL DISTRIBUTION WIDTH 12.9 % (11.5-14.5); WHITE BLOOD COUNT 8.4 K/mm3 (4.8-10.8)
[2018-06-15 15:05] LABS: CALCIUM 9.1 mg/dL (8.4-10.2); POTASSIUM 3.3 mmol/L (3.6-5.0); TOTAL BILIRUBIN 0.4 mg/dL (0.2-1.3); TOTAL PROTEIN 7.8 g/dL (6.3-8.2)
[2018-06-15 16:18] LABS: ERYTHROCYTE SEDIMENTATION RATE 45 mm/hr (0-30)
== END ==
LOC: LAB 13:20
PROVIDERS: Internal Medicine Infectious Disease
DX: T84.54XA Infection and inflammatory reaction due to internal left knee prosthesis, initial encounter (principal)

== ENCOUNTER → 2018-06-22 | Outpatient (CLI) | payer BC | LOC: RAD 15:51 | DX: R05 Cough (principal); I10 Essential (primary) hypertension; L02.416 Cutaneous abscess of left lower limb; Z98.890 Other specified postprocedural states ==

== ENCOUNTER 2018-06-23 15:30 | Outpatient (RCR) | payer BC | END 2018-06-23 16:00 | disposition home or self-care (01) | LOC: PT 15:30 | DX: Z47.89 Encounter for other orthopedic aftercare (principal); Z96.652 Presence of left artificial knee joint ==

== ENCOUNTER → 2018-07-12 | Outpatient (CLI) | payer BC ==
[2018-07-12 17:18] LABS: EOS # 0.1 (0.04-0.40); EOS % 1.4 % (1.0-5.0); HEMATOCRIT 32.2 % (37.0-47.0); HEMOGLOBIN 10.3 g/dL (12.5-16.0); LYMPH# 1.8 (1.50-4.00); MEAN CELL VOLUME 85 fl (78-100); MEAN CORPUSCULAR HEMOGLOBIN 27 pg (27-31); MEAN CORPUSCULAR HGB CONC 32 g/dL (33-37); MEAN PLATELET VOLUME 9.2 fl (7.4-10.4); MONO # 0.6 (0.20-0.80); NEU # 4.1 (1.40-6.50); PLATELET COUNT 441 K/mm3 (130-400); RED CELL DISTRIBUTION WIDTH 12.9 % (11.5-14.5); WHITE BLOOD COUNT 6.6 K/mm3 (4.8-10.8)
[2018-07-12 19:12] LABS: ERYTHROCYTE SEDIMENTATION RATE 47 mm/hr (0-30)
[2018-07-12 20:28] LABS: ALBUMIN 3.8 g/dL (3.5-5.0); CALCIUM 9.4 mg/dL (8.4-10.2); POTASSIUM 3.6 mmol/L (3.6-5.0); TOTAL BILIRUBIN 0.2 mg/dL (0.2-1.3)
== END ==
LOC: LAB 16:25
PROVIDERS: Internal Medicine Infectious Disease
DX: T84.54XA Infection and inflammatory reaction due to internal left knee prosthesis, initial encounter (principal); B99.9 Unspecified infectious disease; Z96.652 Presence of left artificial knee joint

== ENCOUNTER → 2018-08-16 | Outpatient (CLI) | payer BC ==
[2018-08-16 17:16] LABS: ALBUMIN 4.2 g/dL (3.5-5.0); CALCIUM 9.3 mg/dL (8.4-10.2); POTASSIUM 3.3 mmol/L (3.6-5.0); TOTAL BILIRUBIN 0.3 mg/dL (0.2-1.3); TOTAL PROTEIN 7.9 g/dL (6.3-8.2)
[2018-08-16 17:26] LABS: BASO # 0.1 (0.02-0.10); EOS # 0.1 (0.04-0.40); EOS % 1.3 % (1.0-5.0); HEMATOCRIT 35.2 % (37.0-47.0); HEMOGLOBIN 11.2 g/dL (12.5-16.0); LYMPH# 1.6 (1.50-4.00); MEAN CELL VOLUME 85 fl (78-100); MEAN CORPUSCULAR HEMOGLOBIN 27 pg (27-31); MEAN CORPUSCULAR HGB CONC 32 g/dL (33-37); MEAN PLATELET VOLUME 9.5 fl (7.4-10.4); MONO # 0.5 (0.20-0.80); NEU # 3.7 (1.40-6.50); PLATELET COUNT 374 K/mm3 (130-400); RED BLOOD COUNT 4.16 M/mm3 (4.10-5.30); WHITE BLOOD COUNT 5.9 K/mm3 (4.8-10.8)
[2018-08-16 23:35] LABS: ERYTHROCYTE SEDIMENTATION RATE 42 mm/hr (0-30)
== END ==
LOC: LAB 16:18
PROVIDERS: Internal Medicine Infectious Disease
DX: T84.54XA Infection and inflammatory reaction due to internal left knee prosthesis, initial encounter (principal); B95.61 Methicillin susceptible Staphylococcus aureus infection as the cause of diseases classified elsewhere

== ENCOUNTER → 2018-08-25 | Outpatient (CLI) | payer BC | LOC: RAD 09:59 | DX: M25.562 Pain in left knee (principal); Z96.652 Presence of left artificial knee joint; Z98.890 Other specified postprocedural states ==

== ENCOUNTER → 2018-09-06 | Outpatient (CLI) | payer BC ==
[2018-09-06 17:30] LABS: EOS # 0.1 (0.04-0.40); EOS % 1.4 % (1.0-5.0); HEMATOCRIT 34.1 % (37.0-47.0); HEMOGLOBIN 10.8 g/dL (12.5-16.0); LYMPH# 1.6 (1.50-4.00); MEAN CELL VOLUME 84 fl (78-100); MEAN CORPUSCULAR HEMOGLOBIN 27 pg (27-31); MEAN CORPUSCULAR HGB CONC 32 g/dL (33-37); MEAN PLATELET VOLUME 8.9 fl (7.4-10.4); MONO # 0.7 (0.20-0.80); NEU # 4.1 (1.40-6.50); PLATELET COUNT 380 K/mm3 (130-400); RED BLOOD COUNT 4.06 M/mm3 (4.10-5.30); RED CELL DISTRIBUTION WIDTH 14.5 % (11.5-14.5); WHITE BLOOD COUNT 6.6 K/mm3 (4.8-10.8)
[2018-09-06 17:36] LABS: ALBUMIN 4.1 g/dL (3.5-5.0); CALCIUM 9.5 mg/dL (8.4-10.2); POTASSIUM 3.3 mmol/L (3.6-5.0); TOTAL BILIRUBIN 0.4 mg/dL (0.2-1.3)
[2018-09-06 23:30] LABS: ERYTHROCYTE SEDIMENTATION RATE 39 mm/hr (0-30)
== END ==
LOC: LAB 16:29
PROVIDERS: Internal Medicine Infectious Disease
DX: T84.54XA Infection and inflammatory reaction due to internal left knee prosthesis, initial encounter (principal)

== ENCOUNTER → 2018-10-12 | Outpatient (CLI) | payer BC ==
[2018-10-13 13:41] LABS: CALCIUM 9.2 mg/dL (8.4-10.2); EOS # 0.1 (0.04-0.40); EOS % 0.7 % (1.0-5.0); HEMATOCRIT 34.9 % (37.0-47.0); HEMOGLOBIN 10.7 g/dL (12.5-16.0); LYMPH# 1.4 (1.50-4.00); MEAN CELL VOLUME 87 fl (78-100); MEAN CORPUSCULAR HEMOGLOBIN 27 pg (27-31); MEAN CORPUSCULAR HGB CONC 31 g/dL (33-37); MEAN PLATELET VOLUME 9.5 fl (7.4-10.4); MONO # 0.5 (0.20-0.80); NEU # 4.8 (1.40-6.50); PLATELET COUNT 378 K/mm3 (130-400); POTASSIUM 3.2 mmol/L (3.6-5.0); RED BLOOD COUNT 4.03 M/mm3 (4.10-5.30); RED CELL DISTRIBUTION WIDTH 16.6 % (11.5-14.5); TOTAL BILIRUBIN 0.4 mg/dL (0.2-1.3); TOTAL PROTEIN 7.5 g/dL (6.3-8.2); WHITE BLOOD COUNT 6.8 K/mm3 (4.8-10.8)
[2018-10-13 13:42] LABS: ERYTHROCYTE SEDIMENTATION RATE 24 mm/hr (0-30)
== END ==
LOC: LAB 13:32
PROVIDERS: Internal Medicine Infectious Disease
DX: L57.0 Actinic keratosis (principal); L57.1 Actinic reticuloid

== ENCOUNTER → 2018-11-10 | Outpatient (CLI) | payer BC ==
[2018-11-10 15:28] LABS: EOS # 0.1 (0.04-0.40); EOS % 0.9 % (1.0-5.0); HEMATOCRIT 34.2 % (37.0-47.0); HEMOGLOBIN 10.7 g/dL (12.5-16.0); LYMPH# 1.4 (1.50-4.00); MEAN CELL VOLUME 85 fl (78-100); MEAN CORPUSCULAR HEMOGLOBIN 27 pg (27-31); MEAN CORPUSCULAR HGB CONC 31 g/dL (33-37); MEAN PLATELET VOLUME 8.5 fl (7.4-10.4); MONO # 0.6 (0.20-0.80); NEU # 4.8 (1.40-6.50); PLATELET COUNT 426 K/mm3 (130-400); RED BLOOD COUNT 4.04 M/mm3 (4.10-5.30); RED CELL DISTRIBUTION WIDTH 15.1 % (11.5-14.5); WHITE BLOOD COUNT 6.9 K/mm3 (4.8-10.8)
[2018-11-10 15:34] LABS: ALBUMIN 3.8 g/dL (3.5-5.0); POTASSIUM 3.7 mmol/L (3.6-5.0); TOTAL BILIRUBIN 0.3 mg/dL (0.2-1.3); TOTAL PROTEIN 7.8 g/dL (6.3-8.2)
[2018-11-10 16:37] LABS: ERYTHROCYTE SEDIMENTATION RATE 51 mm/hr (0-30)
== END ==
LOC: LAB 14:41
PROVIDERS: Internal Medicine Infectious Disease
DX: T81.49XA Infection following a procedure, other surgical site, initial encounter (principal)

== ENCOUNTER → 2018-11-19 | Outpatient (CLI) | payer BC ==
[~2018-11-19] MED LIST changes: +FLUTICASON0.05 MG/AC NS; +GOOD SENSE ASPI81 M1 PO; +NORVASC 10MG10 MG PO; +PANTOPRAZOLE SO40 MG PO
[2018-11-19 15:35] LABS: EOS % 0.3 % (1.0-5.0); HEMATOCRIT 34.1 % (37.0-47.0); HEMOGLOBIN 10.6 g/dL (12.5-16.0); LYMPH# 1.4 (1.50-4.00); MEAN CELL VOLUME 84 fl (78-100); MEAN CORPUSCULAR HEMOGLOBIN 26 pg (27-31); MEAN CORPUSCULAR HGB CONC 31 g/dL (33-37); MEAN PLATELET VOLUME 8.3 fl (7.4-10.4); MONO # 0.5 (0.20-0.80); NEU # 5.7 (1.40-6.50); PLATELET COUNT 394 K/mm3 (130-400); RED BLOOD COUNT 4.04 M/mm3 (4.10-5.30); RED CELL DISTRIBUTION WIDTH 15.3 % (11.5-14.5); WHITE BLOOD COUNT 7.6 K/mm3 (4.8-10.8)
[2018-11-19 15:41] LABS: CALCIUM 9.2 mg/dL (8.4-10.2); POTASSIUM 3.9 mmol/L (3.6-5.0); TOTAL BILIRUBIN 0.4 mg/dL (0.2-1.3); TOTAL PROTEIN 7.7 g/dL (6.3-8.2)
[2018-11-19 16:50] LABS: ERYTHROCYTE SEDIMENTATION RATE 48 mm/hr (0-30)
== END ==
LOC: LAB 15:16
PROVIDERS: Internal Medicine Infectious Disease
DX: T84.54XA Infection and inflammatory reaction due to internal left knee prosthesis, initial encounter (principal); A49.01 Methicillin susceptible Staphylococcus aureus infection, unspecified site

== ENCOUNTER → 2018-11-23 | Outpatient (CLI) | payer BC ==
[2018-11-23 20:11] VITALS: BP 141/49
[2018-11-23 20:33] LABS: EOS # 0.1 (0.04-0.40); HEMATOCRIT 32.3 % (37.0-47.0); HEMOGLOBIN 10.3 g/dL (12.5-16.0); LYMPH# 1.9 (1.50-4.00); MEAN CELL VOLUME 84 fl (78-100); MEAN CORPUSCULAR HEMOGLOBIN 27 pg (27-31); MEAN CORPUSCULAR HGB CONC 32 g/dL (33-37); MEAN PLATELET VOLUME 8.8 fl (7.4-10.4); MONO # 0.5 (0.20-0.80); NEU # 5.8 (1.40-6.50); PLATELET COUNT 373 K/mm3 (130-400); RED BLOOD COUNT 3.85 M/mm3 (4.10-5.30); RED CELL DISTRIBUTION WIDTH 15.4 % (11.5-14.5); WHITE BLOOD COUNT 8.3 K/mm3 (4.8-10.8)
[2018-11-23 20:44] LABS: ALBUMIN 3.9 g/dL (3.5-5.0); CALCIUM 8.7 mg/dL (8.4-10.2); POTASSIUM 3.7 mmol/L (3.6-5.0); TOTAL BILIRUBIN 0.2 mg/dL (0.2-1.3); TOTAL PROTEIN 7.6 g/dL (6.3-8.2)
[2018-11-23 21:56] LABS: ERYTHROCYTE SEDIMENTATION RATE 52 mm/hr (0-30)
== END ==
LOC: LAB 20:13
PROVIDERS: Internal Medicine Infectious Disease
DX: T81.49XA Infection following a procedure, other surgical site, initial encounter (principal)

== ENCOUNTER → 2018-11-30 | Outpatient (CLI) | payer BC ==
[2018-11-29 20:06] VITALS: BP 129/68
[2018-11-30 23:30] LABS: EOS # 0.2 (0.04-0.40); EOS % 2.7 % (1.0-5.0); HEMATOCRIT 33.3 % (37.0-47.0); HEMOGLOBIN 10.4 g/dL (12.5-16.0); LYMPH# 1.7 (1.50-4.00); MEAN CELL VOLUME 84 fl (78-100); MEAN CORPUSCULAR HEMOGLOBIN 26 pg (27-31); MEAN CORPUSCULAR HGB CONC 31 g/dL (33-37); MEAN PLATELET VOLUME 9.2 fl (7.4-10.4); MONO # 0.7 (0.20-0.80); NEU # 4.8 (1.40-6.50); PLATELET COUNT 388 K/mm3 (130-400); RED BLOOD COUNT 3.96 M/mm3 (4.10-5.30); RED CELL DISTRIBUTION WIDTH 15.3 % (11.5-14.5); WHITE BLOOD COUNT 7.5 K/mm3 (4.8-10.8)
[2018-11-30 23:41] LABS: CALCIUM 9.1 mg/dL (8.4-10.2); POTASSIUM 3.8 mmol/L (3.6-5.0); TOTAL BILIRUBIN 0.2 mg/dL (0.2-1.3); TOTAL PROTEIN 7.8 g/dL (6.3-8.2)
[2018-12-01 00:41] LABS: ERYTHROCYTE SEDIMENTATION RATE 41 mm/hr (0-30)
== END ==
LOC: LAB 20:00
PROVIDERS: Physician Assistant
DX: T84.54XA Infection and inflammatory reaction due to internal left knee prosthesis, initial encounter (principal); A49.01 Methicillin susceptible Staphylococcus aureus infection, unspecified site

== ENCOUNTER → 2018-12-07 | Outpatient (CLI) | payer BC ==
[2018-12-06 20:21] VITALS: BP 141/68
[2018-12-07 20:18] LABS: BASO # 0.1 (0.02-0.10); EOS # 0.1 (0.04-0.40); EOS % 2.3 % (1.0-5.0); HEMATOCRIT 32.8 % (37.0-47.0); HEMOGLOBIN 10.3 g/dL (12.5-16.0); LYMPH# 1.8 (1.50-4.00); MEAN CELL VOLUME 83 fl (78-100); MEAN CORPUSCULAR HEMOGLOBIN 26 pg (27-31); MEAN CORPUSCULAR HGB CONC 31 g/dL (33-37); MEAN PLATELET VOLUME 8.4 fl (7.4-10.4); MONO # 0.5 (0.20-0.80); NEU # 3.6 (1.40-6.50); PLATELET COUNT 292 K/mm3 (130-400); RED BLOOD COUNT 3.94 M/mm3 (4.10-5.30); RED CELL DISTRIBUTION WIDTH 15.3 % (11.5-14.5); WHITE BLOOD COUNT 6.2 K/mm3 (4.8-10.8)
[2018-12-07 20:32] LABS: CALCIUM 8.9 mg/dL (8.4-10.2); POTASSIUM 3.8 mmol/L (3.6-5.0); TOTAL BILIRUBIN 0.3 mg/dL (0.2-1.3); TOTAL PROTEIN 7.5 g/dL (6.3-8.2)
[2018-12-07 22:31] LABS: ERYTHROCYTE SEDIMENTATION RATE 37 mm/hr (0-30)
== END ==
LOC: LAB 19:52
PROVIDERS: Internal Medicine Infectious Disease
DX: T81.49XA Infection following a procedure, other surgical site, initial encounter (principal)

== ENCOUNTER → 2018-12-14 | Outpatient (CLI) | payer BC ==
[2018-12-13 20:23] VITALS: BP 131/75
[2018-12-14 20:59] LABS: HEMATOCRIT 33.5 % (37.0-47.0); HEMOGLOBIN 10.5 g/dL (12.5-16.0); MEAN CELL VOLUME 83 fl (78-100); MEAN CORPUSCULAR HEMOGLOBIN 26 pg (27-31); MEAN CORPUSCULAR HGB CONC 31 g/dL (33-37); PLATELET COUNT 234 K/mm3 (130-400); RED BLOOD COUNT 4.03 M/mm3 (4.10-5.30); RED CELL DISTRIBUTION WIDTH 15.5 % (11.5-14.5)
[2018-12-14 21:12] LABS: ALBUMIN 3.6 g/dL (3.5-5.0); CALCIUM 9.1 mg/dL (8.4-10.2); POTASSIUM 3.7 mmol/L (3.5-5.1); TOTAL BILIRUBIN 0.3 mg/dL (0.2-1.2); TOTAL PROTEIN 7.4 g/dL (6.4-8.3)
[2018-12-14 23:52] LABS: ERYTHROCYTE SEDIMENTATION RATE 29 mm/hr (0-30); LYMPHOCYTE 39 % (20-51); MONOCYTE 11 % (3-10); NEUTROPHILS 50 % (42-75); OVALOCYTES 1+
== END ==
LOC: LAB 19:33
PROVIDERS: Physician Assistant
DX: T81.49XA Infection following a procedure, other surgical site, initial encounter (principal)

== ENCOUNTER → 2018-12-21 | Outpatient (CLI) | payer BC ==
[2018-12-20 20:00] VITALS: BP 136/79
[2018-12-21 20:31] LABS: EOS # 0.1 (0.04-0.40); EOS % 1.4 % (1.0-5.0); HEMATOCRIT 30.2 % (37.0-47.0); HEMOGLOBIN 9.6 g/dL (12.5-16.0); LYMPH# 1.5 (1.50-4.00); MEAN CELL VOLUME 82 fl (78-100); MEAN CORPUSCULAR HEMOGLOBIN 26 pg (27-31); MEAN CORPUSCULAR HGB CONC 32 g/dL (33-37); MEAN PLATELET VOLUME 8.7 fl (7.4-10.4); MONO # 0.4 (0.20-0.80); NEU # 2.3 (1.40-6.50); PLATELET COUNT 294 K/mm3 (130-400); RED BLOOD COUNT 3.67 M/mm3 (4.10-5.30); RED CELL DISTRIBUTION WIDTH 15.2 % (11.5-14.5); WHITE BLOOD COUNT 4.3 K/mm3 (4.8-10.8)
[2018-12-21 20:43] LABS: ALBUMIN 3.5 g/dL (3.5-5.0); CALCIUM 9.3 mg/dL (8.4-10.2); POTASSIUM 3.7 mmol/L (3.5-5.1); TOTAL BILIRUBIN 0.2 mg/dL (0.2-1.2); TOTAL PROTEIN 7.2 g/dL (6.4-8.3)
[2018-12-21 23:37] LABS: ERYTHROCYTE SEDIMENTATION RATE 45 mm/hr (0-30)
== END ==
LOC: LAB 19:57
PROVIDERS: Internal Medicine Infectious Disease
DX: T81.49XA Infection following a procedure, other surgical site, initial encounter (principal)

== ENCOUNTER → 2018-12-28 | Outpatient (CLI) | payer BC ==
[2018-12-27 20:08] VITALS: BP 126/69
[2018-12-28 21:35] LABS: HEMATOCRIT 31.4 % (37.0-47.0); MEAN CELL VOLUME 82 fl (78-100); MEAN CORPUSCULAR HEMOGLOBIN 26 pg (27-31); MEAN CORPUSCULAR HGB CONC 32 g/dL (33-37); MEAN PLATELET VOLUME 8.8 fl (7.4-10.4); PLATELET COUNT 364 K/mm3 (130-400); RED BLOOD COUNT 3.82 M/mm3 (4.10-5.30); RED CELL DISTRIBUTION WIDTH 15.3 % (11.5-14.5); WHITE BLOOD COUNT 5.2 K/mm3 (4.8-10.8)
[2018-12-28 21:45] LABS: ALBUMIN 3.6 g/dL (3.5-5.0); CALCIUM 9.5 mg/dL (8.4-10.2); TOTAL BILIRUBIN 0.2 mg/dL (0.2-1.2); TOTAL PROTEIN 7.2 g/dL (6.4-8.3)
[2018-12-28 23:32] LABS: LYMPHOCYTE 30 % (20-51); MONOCYTE 9 % (3-10); NEUTROPHILS 61 % (42-75)
[2018-12-28 23:33] LABS: ERYTHROCYTE SEDIMENTATION RATE 38 mm/hr (0-30); OVALOCYTES 1+
== END ==
LOC: LAB 19:26
PROVIDERS: Physician Assistant
DX: T81.49XA Infection following a procedure, other surgical site, initial encounter (principal)

== ENCOUNTER → 2019-01-04 | Outpatient (CLI) | payer BC ==
[2019-01-03 20:08] VITALS: BP 129/68
[2019-01-04 22:24] LABS: EOS # 0.1 (0.04-0.40); EOS % 1.6 % (1.0-5.0); HEMATOCRIT 32.4 % (37.0-47.0); HEMOGLOBIN 10.2 g/dL (12.5-16.0); LYMPH# 1.6 (1.50-4.00); MEAN CELL VOLUME 82 fl (78-100); MEAN CORPUSCULAR HEMOGLOBIN 26 pg (27-31); MEAN CORPUSCULAR HGB CONC 32 g/dL (33-37); MEAN PLATELET VOLUME 9.3 fl (7.4-10.4); MONO # 0.6 (0.20-0.80); NEU # 2.6 (1.40-6.50); PLATELET COUNT 318 K/mm3 (130-400); RED BLOOD COUNT 3.97 M/mm3 (4.10-5.30); RED CELL DISTRIBUTION WIDTH 15.2 % (11.5-14.5); WHITE BLOOD COUNT 4.9 K/mm3 (4.8-10.8)
[2019-01-04 22:25] LABS: ERYTHROCYTE SEDIMENTATION RATE 37 mm/hr (0-30)
[2019-01-04 22:42] LABS: ALBUMIN 3.6 g/dL (3.5-5.0); CALCIUM 9.2 mg/dL (8.4-10.2); TOTAL BILIRUBIN 0.2 mg/dL (0.2-1.2); TOTAL PROTEIN 6.1 g/dL (6.4-8.3)
== END ==
LOC: LAB 19:53
PROVIDERS: Physician Assistant
DX: T81.49XA Infection following a procedure, other surgical site, initial encounter (principal)

== ENCOUNTER → 2019-01-11 | Outpatient (CLI) | payer BC ==
[2019-01-10 20:04] VITALS: BP 119/69
[2019-01-11 20:38] LABS: EOS # 0.2 (0.04-0.40); EOS % 2.8 % (1.0-5.0); HEMATOCRIT 32.6 % (37.0-47.0); HEMOGLOBIN 10.2 g/dL (12.5-16.0); LYMPH# 1.6 (1.50-4.00); MEAN CELL VOLUME 82 fl (78-100); MEAN CORPUSCULAR HEMOGLOBIN 26 pg (27-31); MEAN CORPUSCULAR HGB CONC 31 g/dL (33-37); MEAN PLATELET VOLUME 8.8 fl (7.4-10.4); MONO # 0.7 (0.20-0.80); NEU # 3.6 (1.40-6.50); PLATELET COUNT 318 K/mm3 (130-400); RED CELL DISTRIBUTION WIDTH 15.3 % (11.5-14.5); WHITE BLOOD COUNT 6.1 K/mm3 (4.8-10.8)
[2019-01-11 20:51] LABS: ALBUMIN 3.5 g/dL (3.5-5.0); CALCIUM 9.6 mg/dL (8.3-10.5); POTASSIUM 4.1 mmol/L (3.5-5.1); TOTAL BILIRUBIN 0.2 mg/dL (0.2-1.2); TOTAL PROTEIN 7.1 g/dL (6.4-8.3)
[2019-01-11 21:52] LABS: ERYTHROCYTE SEDIMENTATION RATE 39 mm/hr (0-30)
== END ==
LOC: LAB 19:56
PROVIDERS: Physician Assistant
DX: T81.49XA Infection following a procedure, other surgical site, initial encounter (principal)

== ENCOUNTER 2019-01-24 19:55 | Outpatient (RCR) | payer BC ==
[2018-11-19 19:45] VITALS: BP 143/85
--- NOTE | 2018-11-19 19:45 | NUR ---
Pt reports that she will be in earlier tomorrow around 3:30pm for IV med as she already had evening plans for tomorrow. THen she will be back to resuming her time of 8pm each evening for the IV med.
[2018-11-20 15:30] VITALS: BP 140/84
[2018-11-21 20:09] VITALS: BP 134/77
[2018-11-22 20:00] VITALS: BP 113/75
--- NOTE | 2018-11-23 20:05 | NUR ---
Blood drawn from PICC without difficulty and taken to lab.
[2018-11-23 20:11] VITALS: BP 141/49
[2018-11-24 20:20] VITALS: BP 137/78
[2018-11-25 20:06] VITALS: BP 132/70
[2018-11-26 20:07] VITALS: BP 124/80
[2018-11-27 19:55] VITALS: BP 126/69
[2018-11-28 20:03] VITALS: BP 124/70
[2018-11-29 20:06] VITALS: BP 129/68
[2018-11-30 20:02] VITALS: BP 128/67
[2018-12-01 19:59] VITALS: BP 125/78
[2018-12-02 20:10] VITALS: BP 135/80
[2018-12-03 20:07] VITALS: BP 126/77
[2018-12-04 20:01] VITALS: BP 136/69
[2018-12-05 20:45] VITALS: BP 127/60
[2018-12-06 20:21] VITALS: BP 141/68
[2018-12-08 20:03] VITALS: BP 129/68
[2018-12-09 20:00] VITALS: BP 137/73
[2018-12-10 20:11] VITALS: BP 139/64
[2018-12-11 20:10] VITALS: BP 130/64
[2018-12-12 20:26] VITALS: BP 137/73
[2018-12-13 20:23] VITALS: BP 131/75
[2018-12-14 19:53] VITALS: BP 131/72
[2018-12-15 20:00] VITALS: BP 128/80
[2018-12-16 19:57] VITALS: BP 141/68
[2018-12-17 19:45] VITALS: BP 135/83
[2018-12-18 20:00] VITALS: BP 141/71
[2018-12-19 20:35] VITALS: BP 126/73
[2018-12-20 20:00] VITALS: BP 136/79
[2018-12-21 20:01] VITALS: BP 124/67
[2018-12-22 19:55] VITALS: BP 133/68
[2018-12-23 19:57] VITALS: BP 130/65
[2018-12-24 20:15] VITALS: BP 125/74
[2018-12-25 20:02] VITALS: BP 125/78
[2018-12-26 20:37] VITALS: BP 126/67
[2018-12-27 20:08] VITALS: BP 126/69
[2018-12-28 20:05] VITALS: BP 130/73
[2018-12-29 20:18] VITALS: BP 129/84
[2018-12-30 20:08] VITALS: BP 127/74
[2018-12-31 19:57] VITALS: BP 136/64
[2019-01-01 19:50] VITALS: BP 131/84
[2019-01-02 20:36] VITALS: BP 117/73
[2019-01-03 20:08] VITALS: BP 129/68
[2019-01-04 20:20] VITALS: BP 137/90
[2019-01-05 20:01] VITALS: BP 119/69
[2019-01-06 20:02] VITALS: BP 128/71
[2019-01-07 20:17] VITALS: BP 130/63
[2019-01-08 20:01] VITALS: BP 121/56
[2019-01-09 20:15] VITALS: BP 117/86
[2019-01-10 20:04] VITALS: BP 119/69
[2019-01-11 20:20] VITALS: BP 136/71
[2019-01-12 20:24] VITALS: BP 117/67
[2019-01-13 19:59] VITALS: BP 121/67
[2019-01-14 20:40] VITALS: BP 112/69
[2019-01-15 20:08] VITALS: BP 124/73
[2019-01-16 20:00] VITALS: BP 119/68
[2019-01-17 20:00] VITALS: BP 136/67
--- NOTE | 2019-01-23 21:03 | NUR ---
PATIENT ARRIVED FOR OUTPATIENT PROCEDURE. HOWEVER, DUE TO ER ACUITY SHE WAS UNABLE TO GET IN AND LEFT AFTER AN UNKNOWN AMOUNT OF TIME. PATIENT IS CONTACTED AND SHE INDICATES SHE WILL RETURN TOMORROW INSTEAD.
[~2019-01-24] VITALS: Ht 157.5 cm; Wt 68.2 kg
[2019-01-24 20:12] VITALS: BP 126/53
[2019-02-13] MEDS ORDERED: ECOTRIN325 M1 PO (19:35)
[2019-02-13] MEDS ORDERED: NORCO 325 MG-7.1 TA1 PO (19:35)
== END 2019-02-17 ==
LOC: AMSURD
DX: T81.49XA Infection following a procedure, other surgical site, initial encounter (principal); T84.54XA Infection and inflammatory reaction due to internal left knee prosthesis, initial encounter; A49.01 Methicillin susceptible Staphylococcus aureus infection, unspecified site; L02.416 Cutaneous abscess of left lower limb; L92.9 Granulomatous disorder of the skin and subcutaneous tissue, unspecified
CPT/HCPCS: J0696; J1644

== ENCOUNTER → 2019-01-24 | Outpatient (CLI) | payer BC ==
[2019-01-17 20:00] VITALS: BP 136/67
[2019-01-24 20:32] LABS: EOS # 0.1 (0.04-0.40); EOS % 0.7 % (1.0-5.0); HEMATOCRIT 32.5 % (37.0-47.0); HEMOGLOBIN 10.2 g/dL (12.5-16.0); LYMPH# 1.5 (1.50-4.00); MEAN CELL VOLUME 82 fl (78-100); MEAN CORPUSCULAR HEMOGLOBIN 26 pg (27-31); MEAN CORPUSCULAR HGB CONC 31 g/dL (33-37); MEAN PLATELET VOLUME 8.8 fl (7.4-10.4); MONO # 0.7 (0.20-0.80); NEU # 6.7 (1.40-6.50); PLATELET COUNT 368 K/mm3 (130-400); RED BLOOD COUNT 3.98 M/mm3 (4.10-5.30); RED CELL DISTRIBUTION WIDTH 15.1 % (11.5-14.5)
[2019-01-24 20:45] LABS: ALBUMIN 3.5 g/dL (3.5-5.0); CALCIUM 9.2 mg/dL (8.3-10.5); POTASSIUM 4.1 mmol/L (3.5-5.1); TOTAL BILIRUBIN 0.3 mg/dL (0.2-1.2); TOTAL PROTEIN 6.9 g/dL (6.4-8.3)
[2019-01-24 21:36] LABS: ERYTHROCYTE SEDIMENTATION RATE 44 mm/hr (0-30)
== END ==
LOC: LAB 19:57
PROVIDERS: Physician Assistant
DX: T84.54XA Infection and inflammatory reaction due to internal left knee prosthesis, initial encounter (principal); A49.01 Methicillin susceptible Staphylococcus aureus infection, unspecified site

== ENCOUNTER → 2019-01-31 | Outpatient (CLI) | payer BC ==
[2019-01-30 20:15] VITALS: BP 128/69
[2019-01-31 22:08] LABS: EOS # 0.1 (0.04-0.40); EOS % 1.6 % (1.0-5.0); HEMATOCRIT 31.2 % (37.0-47.0); HEMOGLOBIN 9.8 g/dL (12.5-16.0); LYMPH# 1.5 (1.50-4.00); MEAN CELL VOLUME 80 fl (78-100); MEAN CORPUSCULAR HEMOGLOBIN 25 pg (27-31); MEAN CORPUSCULAR HGB CONC 31 g/dL (33-37); MEAN PLATELET VOLUME 9.3 fl (7.4-10.4); MONO # 0.7 (0.20-0.80); NEU # 4.7 (1.40-6.50); PLATELET COUNT 445 K/mm3 (130-400); RED CELL DISTRIBUTION WIDTH 14.7 % (11.5-14.5)
[2019-01-31 22:12] LABS: ALBUMIN 3.4 g/dL (3.5-5.0); POTASSIUM 3.6 mmol/L (3.5-5.1)
[2019-01-31 22:14] LABS: CALCIUM 9.4 mg/dL (8.3-10.5)
[2019-01-31 22:15] LABS: TOTAL PROTEIN 7.6 g/dL (6.4-8.3)
[2019-01-31 23:15] LABS: TOTAL BILIRUBIN 0.2 mg/dL (0.2-1.2)
[2019-01-31 23:36] LABS: ERYTHROCYTE SEDIMENTATION RATE 61 mm/hr (0-30)
== END ==
LOC: LAB 19:50
PROVIDERS: Physician Assistant
DX: T84.54XA Infection and inflammatory reaction due to internal left knee prosthesis, initial encounter (principal); A49.01 Methicillin susceptible Staphylococcus aureus infection, unspecified site

== ENCOUNTER 2019-02-01 19:47 | Outpatient (RCR) | payer BC ==
[2019-01-28 15:38] VITALS: BP 124/67
[2019-01-29 19:59] VITALS: BP 129/59
[2019-01-30 20:15] VITALS: BP 128/69
[2019-01-31 20:02] VITALS: BP 127/64
[~2019-02-01] VITALS: Ht 157.5 cm; Wt 68.2 kg
[2019-02-01 19:51] VITALS: BP 160/63
== END 2019-02-07 20:39 | disposition home or self-care (01) ==
LOC: AMSURD 19:47
DX: T84.54XA Infection and inflammatory reaction due to internal left knee prosthesis, initial encounter (principal); A49.01 Methicillin susceptible Staphylococcus aureus infection, unspecified site
CPT/HCPCS: J0696

== ENCOUNTER → 2019-02-08 | Outpatient (CLI) | payer BC ==
[2019-02-01 19:51] VITALS: BP 160/63
[2019-02-08 15:54] LABS: BASO # 0.1 (0.02-0.10); EOS # 0.2 (0.04-0.40); EOS % 3.2 % (1.0-5.0); HEMATOCRIT 28.2 % (37.0-47.0); HEMOGLOBIN 8.8 g/dL (12.5-16.0); LYMPH# 1.7 (1.50-4.00); MEAN CELL VOLUME 82 fl (78-100); MEAN CORPUSCULAR HEMOGLOBIN 26 pg (27-31); MEAN CORPUSCULAR HGB CONC 31 g/dL (33-37); MEAN PLATELET VOLUME 8.9 fl (7.4-10.4); MONO # 0.5 (0.20-0.80); NEU # 4.4 (1.40-6.50); RED BLOOD COUNT 3.45 M/mm3 (4.10-5.30); WHITE BLOOD COUNT 6.9 K/mm3 (4.8-10.8)
[2019-02-08 16:02] LABS: ALBUMIN 3.3 g/dL (3.5-5.0)
[2019-02-08 16:03] LABS: POTASSIUM 3.9 mmol/L (3.5-5.1)
[2019-02-08 16:04] LABS: CALCIUM 8.8 mg/dL (8.3-10.5)
[2019-02-08 16:05] LABS: TOTAL PROTEIN 7.1 g/dL (6.4-8.3)
[2019-02-08 16:07] LABS: TOTAL BILIRUBIN 0.3 mg/dL (0.2-1.2)
[2019-02-08 16:14] LABS: PLATELET COUNT 576 K/mm3 (130-400)
== END ==
LOC: LAB 13:09
PROVIDERS: Internal Medicine Infectious Disease
DX: T84.54XA Infection and inflammatory reaction due to internal left knee prosthesis, initial encounter (principal); Z79.2 Long term (current) use of antibiotics

== ENCOUNTER → 2019-02-15 | Outpatient (CLI) | payer BC ==
[2019-02-14 19:58] VITALS: BP 125/78
[~2019-02-15] MED LIST changes: +ECOTRIN325 M1 PO; +NORCO 325 MG-7.1 TA1 PO
[2019-02-15 20:41] LABS: EOS # 0.2 (0.04-0.40); EOS % 2.3 % (1.0-5.0); HEMATOCRIT 27.4 % (37.0-47.0); HEMOGLOBIN 8.4 g/dL (12.5-16.0); LYMPH# 1.5 (1.50-4.00); MEAN CELL VOLUME 82 fl (78-100); MEAN CORPUSCULAR HEMOGLOBIN 25 pg (27-31); MEAN CORPUSCULAR HGB CONC 31 g/dL (33-37); MEAN PLATELET VOLUME 9.1 fl (7.4-10.4); MONO # 0.5 (0.20-0.80); NEU # 4.7 (1.40-6.50); PLATELET COUNT 453 K/mm3 (130-400); RED BLOOD COUNT 3.35 M/mm3 (4.10-5.30); RED CELL DISTRIBUTION WIDTH 15.9 % (11.5-14.5)
[2019-02-15 21:43] LABS: ALBUMIN 3.3 g/dL (3.5-5.0)
[2019-02-15 21:44] LABS: POTASSIUM 3.9 mmol/L (3.5-5.1)
[2019-02-15 21:45] LABS: CALCIUM 8.9 mg/dL (8.3-10.5)
[2019-02-15 21:46] LABS: TOTAL PROTEIN 6.6 g/dL (6.4-8.3)
[2019-02-15 21:48] LABS: TOTAL BILIRUBIN 0.2 mg/dL (0.2-1.2)
[2019-02-15 22:34] LABS: ERYTHROCYTE SEDIMENTATION RATE 33 mm/hr (0-30)
== END ==
LOC: LAB 20:06
PROVIDERS: Physician Assistant
DX: T84.54XA Infection and inflammatory reaction due to internal left knee prosthesis, initial encounter (principal); A49.01 Methicillin susceptible Staphylococcus aureus infection, unspecified site

== ENCOUNTER → 2019-02-22 | Outpatient (CLI) | payer BC ==
[2019-02-21 19:55] VITALS: BP 120/59
[2019-02-22 22:08] LABS: ALBUMIN 3.5 g/dL (3.5-5.0); POTASSIUM 3.6 mmol/L (3.5-5.1)
[2019-02-22 22:09] LABS: CALCIUM 8.7 mg/dL (8.3-10.5)
[2019-02-22 22:12] LABS: TOTAL BILIRUBIN 0.2 mg/dL (0.2-1.2)
[2019-02-22 22:20] LABS: BASO # 0.1 (0.02-0.10); EOS # 0.2 (0.04-0.40); EOS % 5.1 % (1.0-5.0); HEMOGLOBIN 8.9 g/dL (12.5-16.0); LYMPH# 1.5 (1.50-4.00); MEAN CELL VOLUME 82 fl (78-100); MEAN CORPUSCULAR HEMOGLOBIN 25 pg (27-31); MEAN CORPUSCULAR HGB CONC 31 g/dL (33-37); MEAN PLATELET VOLUME 9.7 fl (7.4-10.4); MONO # 0.5 (0.20-0.80); NEU # 2.5 (1.40-6.50); PLATELET COUNT 379 K/mm3 (130-400); RED BLOOD COUNT 3.56 M/mm3 (4.10-5.30); RED CELL DISTRIBUTION WIDTH 15.8 % (11.5-14.5); WHITE BLOOD COUNT 4.7 K/mm3 (4.8-10.8)
[2019-02-23 01:46] LABS: ERYTHROCYTE SEDIMENTATION RATE 18 mm/hr (0-30)
== END ==
LOC: LAB 19:47
PROVIDERS: Physician Assistant
DX: T84.54XA Infection and inflammatory reaction due to internal left knee prosthesis, initial encounter (principal); A49.01 Methicillin susceptible Staphylococcus aureus infection, unspecified site

== ENCOUNTER → 2019-03-01 | Outpatient (CLI) | payer BC ==
[2019-02-28 20:00] VITALS: BP 137/63
[2019-03-01 20:17] LABS: EOS # 0.2 (0.04-0.40); EOS % 3.3 % (1.0-5.0); HEMATOCRIT 31.9 % (37.0-47.0); HEMOGLOBIN 9.8 g/dL (12.5-16.0); LYMPH# 1.5 (1.50-4.00); MEAN CELL VOLUME 81 fl (78-100); MEAN CORPUSCULAR HEMOGLOBIN 25 pg (27-31); MEAN CORPUSCULAR HGB CONC 31 g/dL (33-37); MEAN PLATELET VOLUME 9.4 fl (7.4-10.4); MONO # 0.6 (0.20-0.80); NEU # 3.8 (1.40-6.50); PLATELET COUNT 361 K/mm3 (130-400); RED BLOOD COUNT 3.95 M/mm3 (4.10-5.30); RED CELL DISTRIBUTION WIDTH 15.9 % (11.5-14.5); WHITE BLOOD COUNT 6.1 K/mm3 (4.8-10.8)
[2019-03-01 20:30] LABS: ALBUMIN 3.7 g/dL (3.5-5.0); POTASSIUM 4.2 mmol/L (3.5-5.1)
[2019-03-01 20:32] LABS: TOTAL PROTEIN 7.3 g/dL (6.4-8.3)
[2019-03-01 20:34] LABS: TOTAL BILIRUBIN 0.2 mg/dL (0.2-1.2)
[2019-03-01 21:47] LABS: ERYTHROCYTE SEDIMENTATION RATE 16 mm/hr (0-30)
== END ==
LOC: LAB 19:46
PROVIDERS: Internal Medicine Infectious Disease
DX: T84.54XA Infection and inflammatory reaction due to internal left knee prosthesis, initial encounter (principal); A49.01 Methicillin susceptible Staphylococcus aureus infection, unspecified site

== ENCOUNTER → 2019-03-15 | Outpatient (CLI) | payer BC ==
[2019-03-14 20:23] VITALS: BP 134/74
[2019-03-15 19:39] LABS: EOS # 0.2 (0.04-0.40); EOS % 2.8 % (1.0-5.0); HEMOGLOBIN 9.6 g/dL (12.5-16.0); LYMPH# 1.7 (1.50-4.00); MEAN CELL VOLUME 82 fl (78-100); MEAN CORPUSCULAR HEMOGLOBIN 25 pg (27-31); MEAN CORPUSCULAR HGB CONC 31 g/dL (33-37); MONO # 0.5 (0.20-0.80); NEU # 3.6 (1.40-6.50); PLATELET COUNT 380 K/mm3 (130-400); RED CELL DISTRIBUTION WIDTH 16.5 % (11.5-14.5); WHITE BLOOD COUNT 6.1 K/mm3 (4.8-10.8)
[2019-03-15 19:49] LABS: ALBUMIN 3.6 g/dL (3.5-5.0); POTASSIUM 3.7 mmol/L (3.5-5.1)
[2019-03-15 19:50] LABS: CALCIUM 8.9 mg/dL (8.3-10.5)
[2019-03-15 19:51] LABS: TOTAL PROTEIN 7.6 g/dL (6.4-8.3)
[2019-03-15 20:01] LABS: TOTAL BILIRUBIN 0.1 mg/dL (0.2-1.2)
[2019-03-16 04:50] LABS: ERYTHROCYTE SEDIMENTATION RATE 13 mm/hr (0-30)
== END ==
LOC: LAB 19:12
PROVIDERS: Physician Assistant
DX: T84.54XA Infection and inflammatory reaction due to internal left knee prosthesis, initial encounter (principal); A49.01 Methicillin susceptible Staphylococcus aureus infection, unspecified site

== ENCOUNTER 2019-03-16 19:50 | Outpatient (RCR) | payer BC ==
[2019-02-08 15:15] VITALS: BP 135/56
[2019-02-09 17:07] VITALS: BP 116/66
[2019-02-10 21:13] VITALS: BP 122/63
[2019-02-11 19:50] VITALS: BP 130/53
[2019-02-12 20:45] VITALS: BP 130/68
[2019-02-13 19:50] VITALS: BP 130/63
[2019-02-14 19:58] VITALS: BP 125/78
[2019-02-15 20:42] VITALS: BP 118/64
[2019-02-16 20:01] VITALS: BP 122/77
[2019-02-17 20:17] VITALS: BP 132/63
[2019-02-18 20:04] VITALS: BP 123/69
[2019-02-19 19:56] VITALS: BP 117/62
[2019-02-20 19:56] VITALS: BP 120/69
[2019-02-21 19:55] VITALS: BP 120/59
[2019-02-22 19:50] VITALS: BP 116/60
[2019-02-23 20:22] VITALS: BP 122/67
[2019-02-24 20:39] VITALS: BP 137/73
[2019-02-25 08:00] VITALS: BP 138/81
[2019-02-26 19:55] VITALS: BP 130/72
[2019-02-27 20:05] VITALS: BP 125/68
[2019-02-28 20:00] VITALS: BP 137/63
[2019-03-01 19:50] VITALS: BP 146/80
[2019-03-02 20:05] VITALS: BP 133/77
[2019-03-03 19:52] VITALS: BP 121/53
[2019-03-04 19:54] VITALS: BP 137/99
[2019-03-05 20:28] VITALS: BP 137/73
[2019-03-06 20:03] VITALS: BP 136/68
[2019-03-07 20:05] VITALS: BP 135/74
[2019-03-09 20:11] VITALS: BP 138/80
[2019-03-10 20:08] VITALS: BP 125/73
[2019-03-11 19:55] VITALS: BP 125/75
[2019-03-12 20:29] VITALS: BP 132/62
[2019-03-13 20:02] VITALS: BP 119/67
[2019-03-14 20:23] VITALS: BP 134/74
[2019-03-15 19:41] VITALS: BP 127/72
[~2019-03-16] VITALS: Ht 157.5 cm; Wt 68.2 kg
[2019-03-16 20:01] VITALS: BP 135/68
--- NOTE | 2019-03-16 20:13 | NUR ---
LAST DOSE ANTIBIOTIC GIVEN VIA PICC TO RT UPPER ARM. SITE APPEARS WITHOUT S/S ADVERSE REACTION; TEGADERM INTACT ON ALL EDGES. FLUSHES EASILY WITH APPROPRIATE BLOOD RETURN. PICC TO STAY INTACT AT THIS TIME WITH WEEKLY LAB AND PICC CARE TO CONTINUE. DISCUSS WITH PATIENT NEXT DRESSING AND CAP CHANGE DUE ON THE . SHE EXPRESSES DESIRE TO EVENTUALLY MOVE PICC CARE AND LAB TO THE SAME DAY. PATIENT TAKES IMPECCABLE CARE OF PICC LINE AND ALWAYS HAS IT COVERED WITH SHAUN WRAP WHEN ARRIVES TO FACILITY. DECISION MADE TO HAVE PATIENT COME FOR PICC CARE ON THURSDAY WHEN HER LABS ARE DUE, RATHER THAN MAKE AN EXTRA TRIP ON THURSDAY THE FOR CARES TO BE PERFORMED PER THE CURRENT ROUTINE. PATIENT AGREEABLE TO THIS PLAN AND THANKFUL TO HAVE IT DONE IN ONE TRIP.
== END 2019-03-16 20:30 | disposition home or self-care (01) ==
LOC: AMSURD 19:50
DX: T84.54XA Infection and inflammatory reaction due to internal left knee prosthesis, initial encounter (principal); A49.01 Methicillin susceptible Staphylococcus aureus infection, unspecified site
CPT/HCPCS: A6209; J0878

== ENCOUNTER → 2019-03-22 | Outpatient (CLI) | payer BC ==
[2019-03-16 20:01] VITALS: BP 135/68
[2019-03-22 20:38] LABS: BASO # 0.1 (0.02-0.10); EOS # 0.2 (0.04-0.40); EOS % 2.4 % (1.0-5.0); HEMATOCRIT 33.7 % (37.0-47.0); HEMOGLOBIN 10.4 g/dL (12.5-16.0); MEAN CELL VOLUME 81 fl (78-100); MEAN CORPUSCULAR HEMOGLOBIN 25 pg (27-31); MEAN CORPUSCULAR HGB CONC 31 g/dL (33-37); MEAN PLATELET VOLUME 9.2 fl (7.4-10.4); MONO # 0.6 (0.20-0.80); NEU # 3.8 (1.40-6.50); PLATELET COUNT 370 K/mm3 (130-400); RED BLOOD COUNT 4.17 M/mm3 (4.10-5.30); RED CELL DISTRIBUTION WIDTH 16.7 % (11.5-14.5); WHITE BLOOD COUNT 6.6 K/mm3 (4.8-10.8)
[2019-03-22 20:47] LABS: ALBUMIN 3.8 g/dL (3.5-5.0); POTASSIUM 3.7 mmol/L (3.5-5.1)
[2019-03-22 20:48] LABS: CALCIUM 9.1 mg/dL (8.3-10.5)
[2019-03-22 21:07] LABS: TOTAL BILIRUBIN 0.1 mg/dL (0.2-1.2)
[2019-03-22 21:50] LABS: ERYTHROCYTE SEDIMENTATION RATE 11 mm/hr (0-30)
== END ==
LOC: LAB 19:29
PROVIDERS: Internal Medicine Infectious Disease
DX: T84.54XA Infection and inflammatory reaction due to internal left knee prosthesis, initial encounter (principal); A49.01 Methicillin susceptible Staphylococcus aureus infection, unspecified site

== ENCOUNTER → 2019-03-29 | Outpatient (CLI) | payer BC ==
[2019-03-22 20:01] VITALS: BP 148/83
[2019-03-29 21:08] LABS: ALBUMIN 3.8 g/dL (3.5-5.0); EOS # 0.1 (0.04-0.40); EOS % 1.2 % (1.0-5.0); HEMATOCRIT 32.6 % (37.0-47.0); HEMOGLOBIN 10.2 g/dL (12.5-16.0); LYMPH# 2.2 (1.50-4.00); MEAN CELL VOLUME 80 fl (78-100); MEAN CORPUSCULAR HEMOGLOBIN 25 pg (27-31); MEAN CORPUSCULAR HGB CONC 31 g/dL (33-37); MONO # 0.6 (0.20-0.80); NEU # 4.3 (1.40-6.50); PLATELET COUNT 349 K/mm3 (130-400); POTASSIUM 3.5 mmol/L (3.5-5.1); RED BLOOD COUNT 4.06 M/mm3 (4.10-5.30); RED CELL DISTRIBUTION WIDTH 16.8 % (11.5-14.5); WHITE BLOOD COUNT 7.3 K/mm3 (4.8-10.8)
[2019-03-29 21:10] LABS: CALCIUM 9.1 mg/dL (8.3-10.5)
[2019-03-29 21:11] LABS: TOTAL PROTEIN 7.6 g/dL (6.4-8.3)
[2019-03-29 21:13] LABS: TOTAL BILIRUBIN 0.3 mg/dL (0.2-1.2)
[2019-03-29 22:47] LABS: ERYTHROCYTE SEDIMENTATION RATE 11 mm/hr (0-30)
== END ==
LOC: LAB 16:54
PROVIDERS: Internal Medicine Infectious Disease
DX: T84.54XA Infection and inflammatory reaction due to internal left knee prosthesis, initial encounter (principal); A49.01 Methicillin susceptible Staphylococcus aureus infection, unspecified site

== ENCOUNTER → 2019-04-05 | Outpatient (CLI) | payer BC ==
[2019-03-29 20:00] VITALS: BP 133/85
[2019-04-05 21:43] LABS: ALBUMIN 3.8 g/dL (3.5-5.0); POTASSIUM 3.4 mmol/L (3.5-5.1)
[2019-04-05 21:45] LABS: CALCIUM 9.2 mg/dL (8.3-10.5)
[2019-04-05 21:46] LABS: TOTAL PROTEIN 7.2 g/dL (6.4-8.3)
[2019-04-05 21:47] LABS: EOS # 0.2 (0.04-0.40); EOS % 2.3 % (1.0-5.0); HEMATOCRIT 33.5 % (37.0-47.0); HEMOGLOBIN 10.5 g/dL (12.5-16.0); LYMPH# 2.2 (1.50-4.00); MEAN CELL VOLUME 81 fl (78-100); MEAN CORPUSCULAR HEMOGLOBIN 25 pg (27-31); MEAN CORPUSCULAR HGB CONC 31 g/dL (33-37); MEAN PLATELET VOLUME 9.8 fl (7.4-10.4); MONO # 0.7 (0.20-0.80); NEU # 3.9 (1.40-6.50); PLATELET COUNT 332 K/mm3 (130-400); RED BLOOD COUNT 4.14 M/mm3 (4.10-5.30)
[2019-04-05 21:48] LABS: TOTAL BILIRUBIN 0.2 mg/dL (0.2-1.2)
[2019-04-05 22:37] LABS: ERYTHROCYTE SEDIMENTATION RATE 10 mm/hr (0-30)
== END ==
LOC: LAB 19:52
PROVIDERS: Internal Medicine Infectious Disease
DX: T84.54XA Infection and inflammatory reaction due to internal left knee prosthesis, initial encounter (principal); A49.01 Methicillin susceptible Staphylococcus aureus infection, unspecified site

== ENCOUNTER → 2019-04-12 | Outpatient (CLI) | payer BC ==
[2019-04-05 20:00] VITALS: BP 136/60
[2019-04-12 21:13] LABS: EOS # 0.1 (0.04-0.40); EOS % 1.8 % (1.0-5.0); HEMATOCRIT 34.2 % (37.0-47.0); HEMOGLOBIN 10.8 g/dL (12.5-16.0); MEAN CELL VOLUME 80 fl (78-100); MEAN CORPUSCULAR HEMOGLOBIN 25 pg (27-31); MEAN CORPUSCULAR HGB CONC 32 g/dL (33-37); MEAN PLATELET VOLUME 10.1 fl (7.4-10.4); MONO # 0.6 (0.20-0.80); NEU # 4.5 (1.40-6.50); PLATELET COUNT 334 K/mm3 (130-400); RED BLOOD COUNT 4.28 M/mm3 (4.10-5.30); RED CELL DISTRIBUTION WIDTH 17.1 % (11.5-14.5); WHITE BLOOD COUNT 7.2 K/mm3 (4.8-10.8)
[2019-04-12 21:19] LABS: ALBUMIN 3.8 g/dL (3.5-5.0); POTASSIUM 3.4 mmol/L (3.5-5.1)
[2019-04-12 21:21] LABS: TOTAL PROTEIN 7.3 g/dL (6.4-8.3)
[2019-04-12 21:43] LABS: ERYTHROCYTE SEDIMENTATION RATE 10 mm/hr (0-30)
[2019-04-12 22:01] LABS: TOTAL BILIRUBIN 0.1 mg/dL (0.2-1.2)
== END ==
LOC: LAB 19:52
PROVIDERS: Physician Assistant
DX: T84.54XA Infection and inflammatory reaction due to internal left knee prosthesis, initial encounter (principal); A49.01 Methicillin susceptible Staphylococcus aureus infection, unspecified site

== ENCOUNTER → 2019-04-19 | Outpatient (CLI) | payer BC ==
[2019-04-12 20:08] VITALS: BP 135/71
[2019-04-19 21:50] LABS: EOS # 0.1 (0.04-0.40); EOS % 1.7 % (1.0-5.0); HEMATOCRIT 34.1 % (37.0-47.0); HEMOGLOBIN 10.8 g/dL (12.5-16.0); LYMPH# 2.1 (1.50-4.00); MEAN CELL VOLUME 81 fl (78-100); MEAN CORPUSCULAR HEMOGLOBIN 26 pg (27-31); MEAN CORPUSCULAR HGB CONC 32 g/dL (33-37); MEAN PLATELET VOLUME 10.1 fl (7.4-10.4); MONO # 0.5 (0.20-0.80); NEU # 3.7 (1.40-6.50); PLATELET COUNT 327 K/mm3 (130-400); RED BLOOD COUNT 4.19 M/mm3 (4.10-5.30); RED CELL DISTRIBUTION WIDTH 17.2 % (11.5-14.5); WHITE BLOOD COUNT 6.5 K/mm3 (4.8-10.8)
[2019-04-19 21:54] LABS: ALBUMIN 3.8 g/dL (3.5-5.0); POTASSIUM 3.7 mmol/L (3.5-5.1)
[2019-04-19 21:57] LABS: TOTAL PROTEIN 7.3 g/dL (6.4-8.3)
[2019-04-19 21:59] LABS: TOTAL BILIRUBIN 0.2 mg/dL (0.2-1.2)
[2019-04-20 02:40] LABS: ERYTHROCYTE SEDIMENTATION RATE 9 mm/hr (0-30)
== END ==
LOC: LAB 19:50
PROVIDERS: Internal Medicine Infectious Disease
DX: T84.54XA Infection and inflammatory reaction due to internal left knee prosthesis, initial encounter (principal); A49.01 Methicillin susceptible Staphylococcus aureus infection, unspecified site

== ENCOUNTER 2019-05-03 19:55 | Outpatient (RCR) | payer BC ==
[2019-03-22 20:01] VITALS: BP 148/83
[2019-03-29 20:00] VITALS: BP 133/85
[2019-04-05 20:00] VITALS: BP 136/60
[2019-04-12 20:08] VITALS: BP 135/71
[2019-04-19 20:00] VITALS: BP 151/71
[2019-04-26 20:46] VITALS: BP 135/75
[~2019-05-03] VITALS: Ht 157.5 cm; Wt 68.2 kg
[2019-05-03 20:20] VITALS: BP 149/62
== END 2019-06-20 | disposition home or self-care (01) ==
LOC: AMSURD
DX: T84.54XA Infection and inflammatory reaction due to internal left knee prosthesis, initial encounter (principal); A49.01 Methicillin susceptible Staphylococcus aureus infection, unspecified site; M00.9 Pyogenic arthritis, unspecified; L02.416 Cutaneous abscess of left lower limb; L92.9 Granulomatous disorder of the skin and subcutaneous tissue, unspecified
CPT/HCPCS: 19814; A6209

== ENCOUNTER → 2019-05-03 | Outpatient (CLI) | payer BC ==
[2019-04-26 20:46] VITALS: BP 135/75
[2019-05-03 23:29] LABS: ALBUMIN 3.8 g/dL (3.5-5.0); CALCIUM 9.4 mg/dL (8.3-10.5); EOS # 0.1 (0.04-0.40); EOS % 1.9 % (1.0-5.0); HEMATOCRIT 35.3 % (37.0-47.0); HEMOGLOBIN 11.2 g/dL (12.5-16.0); LYMPH# 1.9 (1.50-4.00); MEAN CELL VOLUME 81 fl (78-100); MEAN CORPUSCULAR HEMOGLOBIN 26 pg (27-31); MEAN CORPUSCULAR HGB CONC 32 g/dL (33-37); MEAN PLATELET VOLUME 9.3 fl (7.4-10.4); MONO # 0.6 (0.20-0.80); NEU # 4.6 (1.40-6.50); PLATELET COUNT 321 K/mm3 (130-400); POTASSIUM 3.5 mmol/L (3.5-5.1); RED BLOOD COUNT 4.37 M/mm3 (4.10-5.30); RED CELL DISTRIBUTION WIDTH 16.9 % (11.5-14.5); TOTAL BILIRUBIN 0.2 mg/dL (0.2-1.2); TOTAL PROTEIN 7.4 g/dL (6.4-8.3); WHITE BLOOD COUNT 7.2 K/mm3 (4.8-10.8)
[2019-05-03 23:30] LABS: ERYTHROCYTE SEDIMENTATION RATE 10 mm/hr (0-30)
== END ==
LOC: LAB 19:56
PROVIDERS: Internal Medicine Infectious Disease
DX: T84.54XA Infection and inflammatory reaction due to internal left knee prosthesis, initial encounter (principal); A49.01 Methicillin susceptible Staphylococcus aureus infection, unspecified site

== ENCOUNTER → 2019-05-25 | Outpatient (CLI) | payer BC ==
[2019-05-03 20:20] VITALS: BP 149/62
== END ==
LOC: MAMMO 14:20
DX: Z12.31 Encounter for screening mammogram for malignant neoplasm of breast (principal); N63.32 Unspecified lump in axillary tail of the left breast

== ENCOUNTER → 2019-06-02 | Outpatient (CLI) | payer BC ==
[2019-05-03 20:20] VITALS: BP 149/62
== END ==
LOC: MAMMO 12:00
DX: N63.21 Unspecified lump in the left breast, upper outer quadrant (principal); N60.02 Solitary cyst of left breast

== ENCOUNTER → 2019-06-11 | Outpatient (CLI) | payer BC ==
[2019-06-11 10:33] LABS: EOS # 0.1 (0.04-0.40); EOS % 1.9 % (1.0-5.0); HEMATOCRIT 36.4 % (37.0-47.0); HEMOGLOBIN 11.6 g/dL (12.5-16.0); MEAN CELL VOLUME 82 fl (78-100); MEAN CORPUSCULAR HEMOGLOBIN 26 pg (27-31); MEAN CORPUSCULAR HGB CONC 32 g/dL (33-37); MEAN PLATELET VOLUME 10.3 fl (7.4-10.4); MONO # 0.5 (0.20-0.80); NEU # 2.5 (1.40-6.50); PLATELET COUNT 350 K/mm3 (130-400); RED BLOOD COUNT 4.44 M/mm3 (4.10-5.30); RED CELL DISTRIBUTION WIDTH 16.1 % (11.5-14.5); WHITE BLOOD COUNT 5.2 K/mm3 (4.8-10.8)
[2019-06-11 10:35] LABS: POTASSIUM 3.6 mmol/L (3.5-5.1)
[2019-06-11 10:36] LABS: ALBUMIN 3.7 g/dL (3.5-5.0)
[2019-06-11 10:37] LABS: CALCIUM 9.1 mg/dL (8.3-10.5)
[2019-06-11 10:38] LABS: TOTAL PROTEIN 7.3 g/dL (6.4-8.3)
[2019-06-11 10:40] LABS: TOTAL BILIRUBIN 0.3 mg/dL (0.2-1.2)
[2019-06-11 15:43] LABS: ERYTHROCYTE SEDIMENTATION RATE 9 mm/hr (0-30)
== END ==
LOC: LAB 07:46
PROVIDERS: Physician Assistant
DX: Z00.00 Encounter for general adult medical examination without abnormal findings (principal); Z13.1 Encounter for screening for diabetes mellitus; Z13.220 Encounter for screening for lipoid disorders; Z23 Encounter for immunization; E03.9 Hypothyroidism, unspecified; K21.9 Gastro-esophageal reflux disease without esophagitis; K44.9 Diaphragmatic hernia without obstruction or gangrene; I10 Essential (primary) hypertension

== ENCOUNTER 2019-08-08 15:30 | Outpatient (RCR) | payer BC | END 2019-08-09 | disposition still patient (30) | LOC: PT | DX: T84.54XA Infection and inflammatory reaction due to internal left knee prosthesis, initial encounter (principal); Z96.652 Presence of left artificial knee joint ==

== ENCOUNTER → 2020-03-29 | Outpatient (CLI) | payer BC | LOC: LAB 08:11 | DX: Z20.828 Contact with and (suspected) exposure to other viral communicable diseases (principal) ==

== ENCOUNTER 2020-05-09 13:00 | Outpatient (RCR) | payer BC | END 2020-05-09 13:30 | disposition still patient (30) | LOC: PT 13:00 | DX: Z47.1 Aftercare following joint replacement surgery (principal); Z96.652 Presence of left artificial knee joint ==

== ENCOUNTER → 2020-05-22 | Outpatient (CLI) | payer BC | LOC: MAMMO 11:17 | DX: Z12.31 Encounter for screening mammogram for malignant neoplasm of breast (principal) ==

== ENCOUNTER 2020-06-15 11:15 | Outpatient (RCR) | payer BC | END 2020-06-15 12:00 | disposition home or self-care (01) | LOC: PT 11:15 | DX: Z96.652 Presence of left artificial knee joint (principal) ==

== ENCOUNTER → 2020-07-02 | Outpatient (CLI) | payer BC ==
[2020-07-02 08:12] LABS: EOS # 0.1 (0.04-0.40); EOS % 1.6 % (1.0-5.0); HEMATOCRIT 37.6 % (37.0-47.0); HEMOGLOBIN 12.1 g/dL (12.5-16.0); LYMPH# 1.5 (1.50-4.00); MEAN CELL VOLUME 86 fl (78-100); MEAN CORPUSCULAR HEMOGLOBIN 28 pg (27-31); MEAN CORPUSCULAR HGB CONC 32 g/dL (33-37); MEAN PLATELET VOLUME 9.4 fl (7.4-10.4); MONO # 0.6 (0.20-0.80); PLATELET COUNT 343 K/mm3 (130-400); RED BLOOD COUNT 4.38 M/mm3 (4.10-5.30); RED CELL DISTRIBUTION WIDTH 14.3 % (11.5-14.5); WHITE BLOOD COUNT 6.3 K/mm3 (4.8-10.8)
[2020-07-02 08:27] LABS: ALBUMIN 3.8 g/dL (3.5-5.0); POTASSIUM 3.8 mmol/L (3.5-5.1)
[2020-07-02 08:28] LABS: CALCIUM 8.8 mg/dL (8.3-10.5)
[2020-07-02 08:29] LABS: TOTAL PROTEIN 7.4 g/dL (6.4-8.3)
[2020-07-02 08:31] LABS: TOTAL BILIRUBIN 0.4 mg/dL (0.2-1.2)
== END ==
LOC: LAB 07:45
PROVIDERS: Physician Assistant
DX: Z00.00 Encounter for general adult medical examination without abnormal findings (principal); E03.9 Hypothyroidism, unspecified; I10 Essential (primary) hypertension; K21.9 Gastro-esophageal reflux disease without esophagitis; E78.5 Hyperlipidemia, unspecified; Z83.3 Family history of diabetes mellitus

== ENCOUNTER 2020-08-09 13:30 | Outpatient (RCR) | payer BC | END 2020-08-13 | disposition home or self-care (01) | LOC: PT | DX: Z98.890 Other specified postprocedural states (principal) ==

== ENCOUNTER 2020-08-14 10:53 | Outpatient (RCR) | payer BC | END 2020-11-12 | disposition home or self-care (01) | LOC: PT | DX: Z96.652 Presence of left artificial knee joint (principal) ==

== ENCOUNTER 2020-12-25 14:00 | Outpatient (RCR) | payer BC | END 2021-03-25 | disposition still patient (30) | LOC: PT | DX: Z96.652 Presence of left artificial knee joint (principal) ==

== ENCOUNTER → 2021-02-07 | Day surgery (SDC) | payer BC | LOC: MSO 07:29 | DX: K21.9 Gastro-esophageal reflux disease without esophagitis (principal); K22.70 Barrett's esophagus without dysplasia; I10 Essential (primary) hypertension; Z85.850 Personal history of malignant neoplasm of thyroid; Z90.710 Acquired absence of both cervix and uterus; Z90.89 Acquired absence of other organs; Z79.82 Long term (current) use of aspirin; Z79.890 Hormone replacement therapy; Z79.899 Other long term (current) drug therapy | CPT/HCPCS: 00731; J2704; J7120 ==

== ENCOUNTER 2021-03-27 16:00 | Outpatient (RCR) | payer BC | END 2021-06-25 | disposition home or self-care (01) | LOC: PT | DX: Z96.652 Presence of left artificial knee joint (principal) ==

== ENCOUNTER 2021-06-04 07:38 | Outpatient (RCR) | payer BC | END 2021-08-09 23:59 | disposition home or self-care (01) | LOC: PT 07:38 | DX: T84.54XA Infection and inflammatory reaction due to internal left knee prosthesis, initial encounter (principal); Z96.652 Presence of left artificial knee joint ==

== ENCOUNTER → 2021-06-18 | Outpatient (CLI) | payer BC | LOC: MAMMO 15:45 | DX: Z12.31 Encounter for screening mammogram for malignant neoplasm of breast (principal) ==

== ENCOUNTER → 2021-07-05 | Outpatient (CLI) | payer BC ==
[2021-07-05 07:16] LABS: BASO # 0.05 K/mm3 (0.02-0.10); EOS % 1.8 % (1.0-5.0); HEMATOCRIT 37.7 % (37.0-47.0); HEMOGLOBIN 12.4 g/dL (12.5-16.0); LYMPH# 1.85 K/mm3 (1.50-4.00); MEAN CELL VOLUME 88 fl (78-100); MEAN CORPUSCULAR HEMOGLOBIN 29 pg (27-31); MEAN CORPUSCULAR HGB CONC 33 g/dL (33-37); MEAN PLATELET VOLUME 8.7 fl (7.4-10.4); MONO # 0.54 K/mm3 (0.20-0.80); NEU # 3.06 K/mm3 (1.40-6.50); PLATELET COUNT 325 K/mm3 (130-400); WHITE BLOOD COUNT 5.6 K/mm3 (4.8-10.8)
[2021-07-05 07:26] LABS: ALBUMIN 3.7 g/dL (3.5-5.0); POTASSIUM 3.7 mmol/L (3.5-5.1)
[2021-07-05 07:27] LABS: CALCIUM 8.8 mg/dL (8.3-10.5)
[2021-07-05 07:29] LABS: TOTAL PROTEIN 7.3 g/dL (6.4-8.3)
[2021-07-05 07:30] LABS: TOTAL BILIRUBIN 0.3 mg/dL (0.2-1.2)
== END ==
LOC: LAB 07:05
PROVIDERS: Physician Assistant
DX: Z00.00 Encounter for general adult medical examination without abnormal findings (principal); Z83.3 Family history of diabetes mellitus; E78.5 Hyperlipidemia, unspecified; E03.9 Hypothyroidism, unspecified; I10 Essential (primary) hypertension; K21.9 Gastro-esophageal reflux disease without esophagitis

== ENCOUNTER → 2021-08-01 | Outpatient (CLI) | payer BC ==
[2021-08-01 07:50] LABS: ALBUMIN 3.8 g/dL (3.5-5.0)
[2021-08-01 07:53] LABS: TOTAL PROTEIN 7.4 g/dL (6.4-8.3)
[2021-08-01 07:55] LABS: TOTAL BILIRUBIN 0.2 mg/dL (0.2-1.2)
[2021-08-01 07:58] LABS: DIRECT BILIRUBIN 0.1 mg/dL (0.0-0.5)
== END ==
LOC: LAB 07:29
PROVIDERS: Physician Assistant
DX: B35.1 Tinea unguium (principal)

== ENCOUNTER 2021-08-12 08:00 | Outpatient (RCR) | payer BC | END 2021-09-09 | disposition home or self-care (01) | LOC: PT | DX: T84.54XA Infection and inflammatory reaction due to internal left knee prosthesis, initial encounter (principal); Z96.652 Presence of left artificial knee joint ==

== ENCOUNTER 2021-09-11 15:30 | Outpatient (RCR) | payer BC | END 2021-10-07 | disposition home or self-care (01) | LOC: PT | DX: T84.54XA Infection and inflammatory reaction due to internal left knee prosthesis, initial encounter (principal); Z96.652 Presence of left artificial knee joint ==

== ENCOUNTER 2021-10-09 13:50 | Outpatient (RCR) | payer BC | END 2021-11-07 | disposition home or self-care (01) | LOC: PT | DX: T84.54XD Infection and inflammatory reaction due to internal left knee prosthesis, subsequent encounter (principal); Z96.652 Presence of left artificial knee joint ==

== ENCOUNTER 2021-11-08 14:48 | Outpatient (RCR) | payer BC | END 2021-11-15 17:00 | disposition home or self-care (01) | LOC: PT 14:48 | DX: T84.54XA Infection and inflammatory reaction due to internal left knee prosthesis, initial encounter (principal); Z96.652 Presence of left artificial knee joint ==

== ENCOUNTER → 2022-01-30 | Day surgery (SDC) | payer BC | LOC: MSO 08:09 | DX: Z12.11 Encounter for screening for malignant neoplasm of colon (principal) | CPT/HCPCS: 00812; J2704; J7120 ==

== ENCOUNTER 2022-05-14 15:00 | Outpatient (RCR) | payer BC | END 2022-06-09 | disposition home or self-care (01) | LOC: PT | DX: Z96.652 Presence of left artificial knee joint (principal) ==

== ENCOUNTER 2022-06-13 14:00 | Outpatient (RCR) | payer BC | END 2022-07-09 | disposition still patient (30) | LOC: PT | DX: Z96.652 Presence of left artificial knee joint (principal) ==

== ENCOUNTER 2022-08-10 08:00 | Outpatient (RCR) | payer BC | END 2022-09-09 | disposition home or self-care (01) | LOC: PT | DX: Z96.652 Presence of left artificial knee joint (principal) ==

== ENCOUNTER 2022-10-08 08:00 | Outpatient (RCR) | payer BC | END 2022-11-07 | disposition home or self-care (01) | LOC: PT | DX: T84.54XD Infection and inflammatory reaction due to internal left knee prosthesis, subsequent encounter (principal); Z96.652 Presence of left artificial knee joint; Z89.529 Acquired absence of unspecified knee ==

== ENCOUNTER 2023-07-23 10:50 | Outpatient (RCR) | payer BC | END 2023-08-09 | disposition home or self-care (01) | LOC: PT | DX: M25.562 Pain in left knee (principal); Z96.652 Presence of left artificial knee joint ==

== ENCOUNTER 2023-08-11 08:00 | Outpatient (RCR) | payer BC | END 2023-09-09 | disposition home or self-care (01) | LOC: PT | DX: M25.562 Pain in left knee (principal); Z96.652 Presence of left artificial knee joint ==

== ENCOUNTER 2023-09-11 08:00 | Outpatient (RCR) | payer BC | END 2023-10-08 | disposition home or self-care (01) | LOC: PT | DX: M25.562 Pain in left knee (principal); Z96.652 Presence of left artificial knee joint ==

== ENCOUNTER 2023-10-28 08:00 | Outpatient (RCR) | payer BC | END 2023-11-08 | disposition home or self-care (01) | LOC: PT 08:00 | DX: M25.562 Pain in left knee (principal); Z96.652 Presence of left artificial knee joint ==

== ENCOUNTER 2023-12-09 08:00 | Outpatient (RCR) | payer BC | END 2024-01-08 23:59 | disposition still patient (30) | LOC: PT 08:00 | DX: Z96.652 Presence of left artificial knee joint (principal) ==

== ENCOUNTER 2024-01-26 15:29 | Outpatient (RCR) | payer BC | END 2024-02-07 | LOC: PT | DX: Z96.652 Presence of left artificial knee joint (principal) ==

== ENCOUNTER 2024-02-08 08:00 | Outpatient (RCR) | payer BC | END 2024-03-09 | LOC: PT | DX: Z96.652 Presence of left artificial knee joint (principal) ==

== ENCOUNTER 2024-04-08 13:45 | Outpatient (RCR) | payer BC | END 2024-04-09 | disposition home or self-care (01) | LOC: PT | DX: M25.562 Pain in left knee (principal); Z96.652 Presence of left artificial knee joint ==

== ENCOUNTER 2024-05-17 15:15 | Outpatient (RCR) | payer BC | END 2024-06-09 | disposition home or self-care (01) | LOC: PT | DX: Z96.652 Presence of left artificial knee joint (principal) ==

== ENCOUNTER → 2024-06-27 | Outpatient (CLI) | payer BC | LOC: MAMMO 15:39 | DX: Z12.31 Encounter for screening mammogram for malignant neoplasm of breast (principal); N63.20 Unspecified lump in the left breast, unspecified quadrant ==

== ENCOUNTER → 2024-07-05 | Outpatient (CLI) | payer BC | LOC: RAD 07:15 | DX: N60.02 Solitary cyst of left breast (principal) ==

== ENCOUNTER → 2024-08-09 | Outpatient (CLI) | payer BC ==
[2024-08-09 09:03] LABS: BASO # 0.02 K/mm3 (0.02-0.10); EOS # 0.06 K/mm3 (0.04-0.40); HEMATOCRIT 37.4 % (37.0-47.0); HEMOGLOBIN 12.4 g/dL (12.5-16.0); MEAN CELL VOLUME 86 fl (78-100); MEAN CORPUSCULAR HEMOGLOBIN 29 pg (27-31); MEAN CORPUSCULAR HGB CONC 33 g/dL (33-37); MEAN PLATELET VOLUME 9.3 fl (7.4-10.4); MONO # 0.58 K/mm3 (0.20-0.80); NEU # 3.48 K/mm3 (1.40-6.50); PLATELET COUNT 343 K/mm3 (130-400); RED BLOOD COUNT 4.34 M/mm3 (4.10-5.30); RED CELL DISTRIBUTION WIDTH 13.4 % (11.5-14.5); WHITE BLOOD COUNT 5.9 K/mm3 (4.8-10.8)
[2024-08-09 09:12] LABS: ALBUMIN 4.1 g/dL (3.4-4.8)
[2024-08-09 09:13] LABS: CALCIUM 9.8 mg/dL (8.3-10.5)
[2024-08-09 09:14] LABS: TOTAL PROTEIN 7.6 g/dL (6.2-8.1)
[2024-08-09 09:16] LABS: TOTAL BILIRUBIN 0.4 mg/dL (0.2-1.2)
== END ==
LOC: LAB 08:50
PROVIDERS: Physician Assistant
DX: Z13.1 Encounter for screening for diabetes mellitus (principal); I10 Essential (primary) hypertension; E78.5 Hyperlipidemia, unspecified